=== PATIENT | female | born 1945 | race African-American/Black ===

== ENCOUNTER 2020-02-19 14:39 | Inpatient (IN) | payer MEDICARE, MEDICAID ==
[~2020-02-19] VITALS: Ht 154.9 cm; Wt 45.4 kg
--- NOTE | 2020-02-19 15:21 | Emergency Room Report ---
History of Present Illness General Chief Complaint: Abdominal Pain Source: Patient Present Illness HPI Disclaimer: Please note that this report is being documented using DRAGON technology. This can lead to erroneous entry secondary to incorrect interpretation by the dictating instrument. HPI: 74-year-old female history of right inguinal hernia presents for evaluation of abdominal pain. Reports intermittent pain for the past month over the past few days however pain is become constant and severe. 10 out of 10 , nonradiating, no exacerbating relieving factors. She cannot reduce the hernia any longer. Reports decreased stool and flatulence. Continues to make adequate urine. Takes aspirin but no other blood thinners. Denies fever or chills. Reports nausea but no vomiting. 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 EOMI. Cardiovascular: RRR. S1 and S2 normal. No murmur appreciated Resp: Normal work of breathing. No cough, wheezing or crackles appreciated Abdomen: Abdomen is soft, nondistended. There is a tender palpable firm mass in the right inguinal region. Severely tender to palpation. No overlying skin changes. Skin: Intact. No abrasions, laceration or rash over the exposed skin MSK: Normal tone and bulk. Moving all extremities. No obvious deformity. Neuro: Awake and alert. Mentating appropriately. Medical Decision Making Diagnostic Impression: Primary Impression: Ileus Additional Impressions: Enteritis Inguinal hernia ER Course 74-year-old female presenting for evaluation of abdominal pain. Concern for incarcerated or strangulated hernia though bowel obstruction, volvulus, appendicitis, diverticulitis, ovarian pathology also in the differential. Given the patient's nonreducible right tender mass concern greatest for hernia. Will obtain surgical consult, IV access, broad labs, CT scan. IV fluids running, patient receiving pain medication. 1730: CT scan consistent with generalized ileus, no obvious transition point identified. There is the right inguinal hernia but does not appear incarcerated or strangulated according to radiologist interpretation. Lactate and other labs are within normal limits. The patient's pain is improved. She is receiving IV fluids. No vomiting. Will require admission. She will be admitted to her PMD, per side. Dr. Leon consulted. Laboratory Tests Test 02/19/20 15:30 White Blood Count 8.4 K/UL (4.8-10.8) Red Blood Count 3.67 M/UL (4.20-5.40) L Hemoglobin 11.6 G/DL (12.0-16.0) L Hematocrit 36.7 % (37.0-47.0) L Mean Corpuscular Volume 100 FL (80-99) H Mean Corpuscular Hemoglobin 31.5 PG (27.0-31.0) H Mean Corpuscular Hemoglobin Concent 31.5 G/DL (32.0-36.0) L Red Cell Distribution Width 15.1 % (11.6-14.8) H Platelet Count 640 K/UL (150-450) H Mean Platelet Volume 6.4 FL (6.5-10.1) L Neutrophils (%) (Auto) 62.1 % (45.0-75.0) Lymphocytes (%) (Auto) 28.6 % (20.0-45.0) Monocytes (%) (Auto) 4.9 % (1.0-10.0) Eosinophils (%) (Auto) 3.4 % (0.0-3.0) H Basophils (%) (Auto) 0.9 % (0.0-2.0) Prothrombin Time 10.8 SEC (9.30-11.50) Prothrombin Time INR 1.0 (0.9-1.1) Activated Partial Thromboplast Time 28 SEC (23-33) Sodium Level 128 MMOL/L (136-145) L Potassium Level 3.6 MMOL/L (3.5-5.1) Chloride Level 98 MMOL/L (98-107) Carbon Dioxide Level 22 MMOL/L (21-32) Anion Gap 8 mmol/L (5-15) Blood Urea Nitrogen 25 mg/dL (7-18) H Creatinine 1.0 MG/DL (0.55-1.30) Estimated Glomerular Filtration Rate 54.5 mL/min (>60) Glucose Level 92 MG/DL (74-106) Lactic Acid Level 0.90 mmol/L (0.4-2.0) Calcium Level 8.5 MG/DL (8.5-10.1) Total Bilirubin 0.5 MG/DL (0.2-1.0) Aspartate Amino Transferase (AST) 16 U/L (15-37) Alanine Aminotransferase (ALT) 13 U/L (12-78) Alkaline Phosphatase 45 U/L (46-116) L Total Protein 7.2 G/DL (6.4-8.2) Albumin 3.8 G/DL (3.4-5.0) Globulin 3.4 g/dL Albumin/Globulin Ratio 1.1 (1.0-2.7) Lipase 125 U/L (73-393) Microbiology Date/Time Source Procedure Growth Status 02/19/20 15:25 Nasopharynx SARS-CoV-2 RdRp Gene Assay - Final Complete EKG Diagnostic Results EKG Time: 17:51 Rate: normal Rhythm: NSR ST Segments: no acute changes Other Impression Sinus rhythm with sinus arrhythmia. Normal axis, normal intervals, no ST segment changes. Rhythm Strip Diag. Results Rhythm Strip Time: 17:51 EP Interpretation: yes Rate: 60s Rhythm: NSR, no PVC's, other - Sinus arrhythmia CT/MRI/US Diagnostic Results CT/MRI/US Diagnostic Results : Impression INDICATION: Reason For Exam: ABD PAIN. COMPARISON: None TECHNIQUE: Axial images were obtained through the abdomen pelvis with intravenous contrast. Sagittal and coronal reformats are generated. All CT scans at this facility are performed using dose modulation techniques as appropriate to a performed exam including the following: automated exposure control with adjustment of the mA and/or kV according to patient size. RADIATION DOSE: CTDIvol: 3 mGy DLP: 132.4 mGy-cm Dose information generated by the CT scanner is available in PACS. FINDINGS: Mild emphysematous changes noted in the lung bases. The liver and spleen are homogeneous. Gallbladder is without sludge or stone and there is no wall thickening. The pancreas is unremarkable. Adrenals are normal in morphology. The kidneys are normal in size, shape and axis. There are numerous dilated fluid-filled small bowel loops throughout the abdomen and pelvis. No transition point noted. There is a loop in the anterior lower pelvis which appears slightly thickened. Question focal enteritis. Right colon is also fluid-filled. Stool lucencies noted in the left colon. There is sigmoid diverticulosis without sign of acute diverticulitis. The appendix is not visualized. There is no free fluid or free air. No pathologic adenopathy demonstrated. Urinary bladder appears unremarkable. Uterus is midline with calcified fibroid. There is a right inguinal hernia containing a loop of small bowel without definite incarceration. IMPRESSION: FLUID DISTENTION OF MULTIPLE SMALL AND LARGE BOWEL LOOPS THROUGHOUT THE ABDOMEN AND PELVIS WITHOUT CLEAR TRANSITION POINT. THE APPEARANCE SUGGESTIVE OF GENERALIZED ADYNAMIC ILEUS RATHER THAN FOCAL OBSTRUCTION. ONE OF THE SMALL BOWEL LOOP IN THE ANTERIOR LOWER PELVIS APPEARS THICKENED. QUESTION FOCAL ENTERITIS. RIGHT INGUINAL HERNIA CONTAINING A SMALL BOWEL LOOP WHICH IS ALSO FLUID-FILLED BUT DOES NOT APPEAR INCARCERATED OR OBSTRUCTED. DIVERTICULOSIS. CALCIFIED FIBROID. Dictated By: Kaushik Lassiter MD Electronically Signed By: Kaushik Lassiter MD Signed Date/Time 02/19/20 4624 CC: Hira Sorenson MD Last Vital Signs Date Time Temp Pulse Resp B/P (MAP) Pulse Ox O2 Delivery O2 Flow Rate FiO2 02/19/20 14:50 90 20 Room Air 02/19/20 14:44 99.1 153/87 (109) 99 Disposition: ADMITTED INPATIENT Condition: Serious Hira Sorenson MD Feb 19, 2020 15:21
[2020-02-19] MEDS ORDERED: Morphine Sulfate 4mg/ml Inj (IV USE ONLY) IVP ONE (15:30)
[2020-02-19] MEDS ORDERED: Omnipaque-300 100ml vial INJ PRN (15:30)
[2020-02-19 15:41] VITALS: BP 153/87
[2020-02-19 15:54] LABS: BASOPHILS % (AUTO) 0.9 % (0.0-2.0); EOSINOPHILS % (AUTO) 3.4 % (0.0-3.0); HEMATOCRIT 36.7 % (37.0-47.0); HEMOGLOBIN 11.6 G/DL (12.0-16.0); LYMPHOCYTES % (AUTO) 28.6 % (20.0-45.0); MEAN CORPUSCULAR VOLUME 100 FL (80-99); MONOCYTES % (AUTO) 4.9 % (1.0-10.0); NEUTROPHILS % (AUTO) 62.1 % (45.0-75.0); PLATELET COUNT 640 K/UL (150-450); RED BLOOD COUNT 3.67 M/UL (4.20-5.40); RED CELL DISTRIBUTION WIDTH 15.1 % (11.6-14.8); WHITE BLOOD COUNT 8.4 K/UL (4.8-10.8)
[2020-02-19 16:11] LABS: ANION GAP 8 mmol/L (5-15); BLOOD UREA NITROGEN 25 mg/dL (7-18); CALCIUM 8.5 MG/DL (8.5-10.1); CARBON DIOXIDE 22 MMOL/L (21-32); CHLORIDE 98 MMOL/L (98-107); POTASSIUM 3.6 MMOL/L (3.5-5.1); SODIUM 128 MMOL/L (136-145)
[2020-02-19 16:13] LABS: ALANINE AMINOTRANSFERASE 13 U/L (12-78); ALBUMIN 3.8 G/DL (3.4-5.0); ALBUMIN/GLOBULIN RATIO 1.1 (1.0-2.7); ALKALINE PHOSPHATASE 45 U/L (46-116); ASPARTATE AMINO TRANSFERASE 16 U/L (15-37); BILIRUBIN,TOTAL 0.5 MG/DL (0.2-1.0)
--- NOTE | 2020-02-19 16:59 | Diagnostic Imaging Report ---
EXAM: CT CT Abdomen Pelvis w/Contrast INDICATION: Reason For Exam: ABD PAIN. COMPARISON: None TECHNIQUE: Axial images were obtained through the abdomen pelvis with intravenous contrast. Sagittal and coronal reformats are generated. All CT scans at this facility are performed using dose modulation techniques as appropriate to a performed exam including the following: automated exposure control with adjustment of the mA and/or kV according to patient size. RADIATION DOSE: CTDIvol: 3 mGy DLP: 132.4 mGy-cm Dose information generated by the CT scanner is available in PACS. FINDINGS: Mild emphysematous changes noted in the lung bases. The liver and spleen are homogeneous. Gallbladder is without sludge or stone and there is no wall thickening. The pancreas is unremarkable. Adrenals are normal in morphology. The kidneys are normal in size, shape and axis. There are numerous dilated fluid-filled small bowel loops throughout the abdomen and pelvis. No transition point noted. There is a loop in the anterior lower pelvis which appears slightly thickened. Question focal enteritis. Right colon is also fluid-filled. Stool lucencies noted in the left colon. There is sigmoid diverticulosis without sign of acute diverticulitis. The appendix is not visualized. There is no free fluid or free air. No pathologic adenopathy demonstrated. Urinary bladder appears unremarkable. Uterus is midline with calcified fibroid. There is a right inguinal hernia containing a loop of small bowel without definite incarceration. IMPRESSION: FLUID DISTENTION OF MULTIPLE SMALL AND LARGE BOWEL LOOPS THROUGHOUT THE ABDOMEN AND PELVIS WITHOUT CLEAR TRANSITION POINT. THE APPEARANCE SUGGESTIVE OF GENERALIZED ADYNAMIC ILEUS RATHER THAN FOCAL OBSTRUCTION. ONE OF THE SMALL BOWEL LOOP IN THE ANTERIOR LOWER PELVIS APPEARS THICKENED. QUESTION FOCAL ENTERITIS. RIGHT INGUINAL HERNIA CONTAINING A SMALL BOWEL LOOP WHICH IS ALSO FLUID-FILLED BUT DOES NOT APPEAR INCARCERATED OR OBSTRUCTED. DIVERTICULOSIS. CALCIFIED FIBROID.
[2020-02-19 19:30] VITALS: BP 118/61
[2020-02-19 20:25] VITALS: BP 156/90
[2020-02-19 20:30] LABS: APPEARANCE,URINE CLEAR; BILIRUBIN, URINE NEGATIVE (NEGATIVE); COLOR,URINE PALE YELLOW; GLUCOSE, URINE (UA) NEGATIVE (NEGATIVE); KETONES,URINE 1+ (NEGATIVE); LEUKOCYTE ESTERASE ,URINE NEGATIVE (NEGATIVE); NITRITE,URINE NEGATIVE (NEGATIVE); PH,URINE 7 (4.5-8.0); PROTEIN,URINE NEGATIVE (NEGATIVE); UROBILINOGEN,URINE NORMAL MG/DL (0.0-1.0)
[2020-02-19] MEDS ORDERED: LISINOPRIL-HCT1 EACH ORAL (21:25)
[2020-02-19] MEDS ORDERED: CARVEDILOL12.5 MG ORAL (21:28)
[2020-02-19] MEDS ORDERED: LIPITOR80 MG ORAL (21:28)
[2020-02-19] MEDS ORDERED: HYDREA500 MG PO (21:28)
--- NOTE | 2020-02-19 22:21 | Consultation ---
History of Present Illness General Date patient seen: Feb 19, 2020 Reason for Hospitalization: Abdominal Pain Present Illness HPI Duplicate ERROPR Allergies: Coded Allergies: No Known Allergies (Unverified , 02/19/20) COVID-19 Screening Contact w/high risk pt: No Recent Travel to affected area: No Experienced COVID-19 symptoms?: No Medication History Scheduled Atorvastatin (Lipitor), 80 MG ORAL DAILY, (Reported) Carvedilol* (Carvedilol*), 12.5 MG ORAL EVERY 12 HOURS, (Reported) Lisinopril/Hydrochlorothiazide 10-12.5 Mg Tab (Lisinopril-Hctz 10-12.5 Mg Tab), 1 TAB ORAL DAILY, (Reported) Miscellaneous Medications Hydroxyurea* (HYDREA 500mg*), 500 MG PO, (Reported) Patient History Healthcare decision maker Resuscitation status Advanced Directive on File Review of Systems Review of Symptoms General ROS: no weight loss or fever Psychological ROS: no depression or mood changes, no memory loss Ophthalmic ROS: no visual changes or eye irritation ENT ROS: no nasal congestion, hearing loss, dizziness Allergy and Immunology ROS: no allergic symptoms or urticaria Hematological and Lymphatic ROS: no swollen glands, unusual bleeding or bruising Endocrine ROS: no polyuria, polydipsia, weight changes, temperature intolerance Respiratory ROS: no cough, shortness of breath, or wheezing Cardiovascular ROS: no chest pain or dyspnea on exertion Gastrointestinal ROS: denies abdominal pain, bright red blood in stool. Musculoskeletal ROS: no myalgias or arthralgias Neurological ROS: no TIA or stroke symptoms Dermatological ROS: no new or changing skin lesions, rashes or pruritis Physical Exam Physical Exam General appearance: alert, cooperative, no distress, appears stated age Head: Normocephalic, without obvious abnormality, atraumatic Eyes: conjunctivae/corneas clear. PERRL, EOM's intact. Fundi benign Throat: Lips, mucosa, and tongue normal. Teeth and gums normal Neck: supple, symmetrical, trachea midline, no adenopathy, thyroid: not enlarged, symmetric, no tenderness/mass/nodules, no carotid bruit and no JVD Lungs: clear to auscultation bilaterally Heart: regular rate and rhythm, S1, S2 normal, no murmur, click, rub or gallop Abdomen: soft, non-tender. Bowel sounds normal. No masses, no organomegaly Extremities: extremities normal, atraumatic, no cyanosis or edema Pulses: 2+ and symmetric Skin: Skin color, texture, turgor normal. No rashes or lesions Neurologic: Grossly normal Last 24 Hour Vital Signs Date Time Temp Pulse Resp B/P (MAP) Pulse Ox O2 Delivery O2 Flow Rate FiO2 02/19/20 20:20 99.1 86 16 118/61 99 Room Air 02/19/20 20:00 99.1 02/19/20 19:30 99.1 86 16 118/61 99 Room Air 02/19/20 15:41 99.1 20 153/87 99 Room Air 02/19/20 14:50 90 20 Room Air 02/19/20 14:44 99.1 90 20 153/87 (109) 99 Room Air Laboratory Tests Test 02/19/20 15:30 02/19/20 20:04 White Blood Count 8.4 K/UL (4.8-10.8) Red Blood Count 3.67 M/UL (4.20-5.40) L Hemoglobin 11.6 G/DL (12.0-16.0) L Hematocrit 36.7 % (37.0-47.0) L Mean Corpuscular Volume 100 FL (80-99) H Mean Corpuscular Hemoglobin 31.5 PG (27.0-31.0) H Mean Corpuscular Hemoglobin Concent 31.5 G/DL (32.0-36.0) L Red Cell Distribution Width 15.1 % (11.6-14.8) H Platelet Count 640 K/UL (150-450) H Mean Platelet Volume 6.4 FL (6.5-10.1) L Neutrophils (%) (Auto) 62.1 % (45.0-75.0) Lymphocytes (%) (Auto) 28.6 % (20.0-45.0) Monocytes (%) (Auto) 4.9 % (1.0-10.0) Eosinophils (%) (Auto) 3.4 % (0.0-3.0) H Basophils (%) (Auto) 0.9 % (0.0-2.0) Prothrombin Time 10.8 SEC (9.30-11.50) Prothromb Time International Ratio 1.0 (0.9-1.1) Activated Partial Thromboplast Time 28 SEC (23-33) Sodium Level 128 MMOL/L (136-145) L Potassium Level 3.6 MMOL/L (3.5-5.1) Chloride Level 98 MMOL/L (98-107) Carbon Dioxide Level 22 MMOL/L (21-32) Anion Gap 8 mmol/L (5-15) Blood Urea Nitrogen 25 mg/dL (7-18) H Creatinine 1.0 MG/DL (0.55-1.30) Estimat Glomerular Filtration Rate 54.5 mL/min (>60) Glucose Level 92 MG/DL (74-106) Lactic Acid Level 0.90 mmol/L (0.4-2.0) Calcium Level 8.5 MG/DL (8.5-10.1) Total Bilirubin 0.5 MG/DL (0.2-1.0) Aspartate Amino Transf (AST/SGOT) 16 U/L (15-37) Alanine Aminotransferase (ALT/SGPT) 13 U/L (12-78) Alkaline Phosphatase 45 U/L (46-116) L Total Protein 7.2 G/DL (6.4-8.2) Albumin 3.8 G/DL (3.4-5.0) Globulin 3.4 g/dL Albumin/Globulin Ratio 1.1 (1.0-2.7) Lipase 125 U/L (73-393) Urine Color Pale yellow Urine Appearance Clear Urine pH 7 (4.5-8.0) Urine Specific [place] 1.005 (1.005-1.035) Urine Protein Negative (NEGATIVE) Urine Glucose (UA) Negative (NEGATIVE) Urine Ketones 1+ (NEGATIVE) H Urine Blood Negative (NEGATIVE) Urine Nitrite Negative (NEGATIVE) Urine Bilirubin Negative (NEGATIVE) Urine Urobilinogen Normal MG/DL (0.0-1.0) Urine Leukocyte Esterase Negative (NEGATIVE) Microbiology Date/Time Source Procedure Growth Status 02/19/20 15:25 Nasopharynx SARS-CoV-2 RdRp Gene Assay - Final Complete Height (Feet): 5 Height (Inches): 1.00 Weight (Pounds): 105 Medications Current Medications Medications (Trade) Dose Ordered Sig/Danuta Route PRN Reason Start Time Stop Time Status Last Admin Dose Admin Iohexol (OMNIPAQUE-300 100ml) 100 ml NOW PRN INJ Radiology Procedure 02/19/20 15:30 02/21/20 15:18 Assessment/Plan Problem List: (1) Inguinal hernia ICD Codes: K40.90 - Unilateral inguinal hernia, without obstruction or gangrene , not specified as recurrent SNOMED: 859770107 (2) Enteritis ICD Codes: K52.9 - Noninfective gastroenteritis and colitis, unspecified SNOMED: 65699286 (3) Ileus ICD Codes: K56.7 - Ileus, unspecified SNOMED: 269379292 Bin Leon Feb 19, 2020 22:21
--- NOTE | 2020-02-19 22:49 | Consultation ---
History of Present Illness General Reason for Hospitalization: Abdominal Pain Present Illness HPI This is a 74-year-old female with known history of right inguinal hernia who presents for evaluation of abdominal pain. Reports intermittent pain for the past month over the past few days however pain is become constant and severe. 10 out of 10, nonradiating, no exacerbating relieving factors. She cannot reduce the hernia any longer. Reports decreased stool and flatulence. Continues to make adequate urine. Takes aspirin but no other blood thinners. Denies fever or chills. Reports nausea but no vomiting. Surgery called to evaluate and assist with care. Patient seen, patient evaluated, chart reviewed. States she had flatus and bowel movement this afternoon but still feels bowel discomfort. Does not know why this right groin bulge is no longer reducible. CT reviewed personally. Allergies: Coded Allergies: No Known Allergies (Unverified , 02/19/20) COVID-19 Screening Contact w/high risk pt: No Recent Travel to affected area: No Experienced COVID-19 symptoms?: No Medication History Scheduled Atorvastatin (Lipitor), 80 MG ORAL DAILY, (Reported) Carvedilol* (Carvedilol*), 12.5 MG ORAL EVERY 12 HOURS, (Reported) Lisinopril/Hydrochlorothiazide 10-12.5 Mg Tab (Lisinopril-Hctz 10-12.5 Mg Tab), 1 TAB ORAL DAILY, (Reported) Miscellaneous Medications Hydroxyurea* (HYDREA 500mg*), 500 MG PO, (Reported) Patient History History Provided By: Patient Healthcare decision maker Resuscitation status Advanced Directive on File Past Medical/Surgical History Past Medical/Surgical History: (1) Inguinal hernia (2) Enteritis (3) Ileus Review of Systems Review of Symptoms General ROS: no weight loss or fever Psychological ROS: no depression or mood changes, no memory loss Ophthalmic ROS: no visual changes or eye irritation ENT ROS: no nasal congestion, hearing loss, dizziness Allergy and Immunology ROS: no allergic symptoms or urticaria Hematological and Lymphatic ROS: no swollen glands, unusual bleeding or bruising Endocrine ROS: no polyuria, polydipsia, weight changes, temperature intolerance Respiratory ROS: no cough, shortness of breath, or wheezing Cardiovascular ROS: no chest pain or dyspnea on exertion Gastrointestinal ROS: ++ abdominal pain, bright red blood in stool. Musculoskeletal ROS: no myalgias or arthralgias Neurological ROS: no TIA or stroke symptoms Dermatological ROS: no new or changing skin lesions, rashes or pruritis Physical Exam Physical Exam General appearance: alert, cooperative, no distress, appears stated age Head: Normocephalic, without obvious abnormality, atraumatic Eyes: conjunctivae/corneas clear. PERRL, EOM's intact. Fundi benign Throat: Lips, mucosa, and tongue normal. Teeth and gums normal Neck: supple, symmetrical, trachea midline, no adenopathy, thyroid: not enlarged, symmetric, no tenderness/mass/nodules, no carotid bruit and no JVD Lungs: clear to auscultation bilaterally Heart: regular rate and rhythm, S1, S2 normal, no murmur, click, rub or gallop Abdomen: soft, discomfort on palpation generalized. Bowel sounds decreased. No masses, no organomegaly right inguinal hernia identified tender seemingly reducible Extremities: extremities normal, atraumatic, no cyanosis or edema Pulses: 2+ and symmetric Skin: Skin color, texture, turgor normal. No rashes or lesions Neurologic: Grossly normal Last 24 Hour Vital Signs Date Time Temp Pulse Resp B/P (MAP) Pulse Ox O2 Delivery O2 Flow Rate FiO2 02/19/20 20:20 99.1 86 16 118/61 99 Room Air 02/19/20 20:00 99.1 02/19/20 19:30 99.1 86 16 118/61 99 Room Air 02/19/20 15:41 99.1 20 153/87 99 Room Air 02/19/20 14:50 90 20 Room Air 02/19/20 14:44 99.1 90 20 153/87 (109) 99 Room Air Laboratory Tests Test 02/19/20 15:30 02/19/20 20:04 White Blood Count 8.4 K/UL (4.8-10.8) Red Blood Count 3.67 M/UL (4.20-5.40) L Hemoglobin 11.6 G/DL (12.0-16.0) L Hematocrit 36.7 % (37.0-47.0) L Mean Corpuscular Volume 100 FL (80-99) H Mean Corpuscular Hemoglobin 31.5 PG (27.0-31.0) H Mean Corpuscular Hemoglobin Concent 31.5 G/DL (32.0-36.0) L Red Cell Distribution Width 15.1 % (11.6-14.8) H Platelet Count 640 K/UL (150-450) H Mean Platelet Volume 6.4 FL (6.5-10.1) L Neutrophils (%) (Auto) 62.1 % (45.0-75.0) Lymphocytes (%) (Auto) 28.6 % (20.0-45.0) Monocytes (%) (Auto) 4.9 % (1.0-10.0) Eosinophils (%) (Auto) 3.4 % (0.0-3.0) H Basophils (%) (Auto) 0.9 % (0.0-2.0) Prothrombin Time 10.8 SEC (9.30-11.50) Prothromb Time International Ratio 1.0 (0.9-1.1) Activated Partial Thromboplast Time 28 SEC (23-33) Sodium Level 128 MMOL/L (136-145) L Potassium Level 3.6 MMOL/L (3.5-5.1) Chloride Level 98 MMOL/L (98-107) Carbon Dioxide Level 22 MMOL/L (21-32) Anion Gap 8 mmol/L (5-15) Blood Urea Nitrogen 25 mg/dL (7-18) H Creatinine 1.0 MG/DL (0.55-1.30) Estimat Glomerular Filtration Rate 54.5 mL/min (>60) Glucose Level 92 MG/DL (74-106) Lactic Acid Level 0.90 mmol/L (0.4-2.0) Calcium Level 8.5 MG/DL (8.5-10.1) Total Bilirubin 0.5 MG/DL (0.2-1.0) Aspartate Amino Transf (AST/SGOT) 16 U/L (15-37) Alanine Aminotransferase (ALT/SGPT) 13 U/L (12-78) Alkaline Phosphatase 45 U/L (46-116) L Total Protein 7.2 G/DL (6.4-8.2) Albumin 3.8 G/DL (3.4-5.0) Globulin 3.4 g/dL Albumin/Globulin Ratio 1.1 (1.0-2.7) Lipase 125 U/L (73-393) Urine Color Pale yellow Urine Appearance Clear Urine pH 7 (4.5-8.0) Urine Specific [place] 1.005 (1.005-1.035) Urine Protein Negative (NEGATIVE) Urine Glucose (UA) Negative (NEGATIVE) Urine Ketones 1+ (NEGATIVE) H Urine Blood Negative (NEGATIVE) Urine Nitrite Negative (NEGATIVE) Urine Bilirubin Negative (NEGATIVE) Urine Urobilinogen Normal MG/DL (0.0-1.0) Urine Leukocyte Esterase Negative (NEGATIVE) Microbiology Date/Time Source Procedure Growth Status 02/19/20 15:25 Nasopharynx SARS-CoV-2 RdRp Gene Assay - Final Complete Height (Feet): 5 Height (Inches): 1.00 Weight (Pounds): 105 Medications Current Medications Medications (Trade) Dose Ordered Sig/Danuta Route PRN Reason Start Time Stop Time Status Last Admin Dose Admin Iohexol (OMNIPAQUE-300 100ml) 100 ml NOW PRN INJ Radiology Procedure 02/19/20 15:30 02/21/20 15:18 Assessment/Plan Problem List: (1) Inguinal hernia Assessment & Plan: Patient with a right inguinal hernia. States bulges out now and she is never pushed back and like she used to. Has known about this for some time now. CT reviewed ileus with bowel and a right groin hernia. CT done on consistently demonstrate strangulation or incarceration but on examination it is tender and only support reducible. She did have a bowel movement today and is passing flatus this afternoon. Potentially reduced right inguinal hernia with resulting ileus from acute events. We will order small bowel series GI Gastrografin for evaluation of any potential obstructive process. N.p.o. IV fluids Labs ordered We will follow with recommendations thank you for me participation's care ICD Codes: K40.90 - Unilateral inguinal hernia, without obstruction or gangrene , not specified as recurrent SNOMED: 300116284 (2) Enteritis ICD Codes: K52.9 - Noninfective gastroenteritis and colitis, unspecified SNOMED: 83903006 (3) Ileus Assessment & Plan: The liver and spleen are homogeneous. Gallbladder is without sludge or stone and there is no wall thickening. The pancreas is unremarkable. Adrenals are normal in morphology. The kidneys are normal in size, shape and axis. There are numerous dilated fluid-filled small bowel loops throughout the abdomen and pelvis. No transition point noted. There is a loop in the anterior lower pelvis which appears slightly thickened. Question focal enteritis. Right colon is also fluid-filled. Stool lucencies noted in the left colon. There is sigmoid diverticulosis without sign of acute diverticulitis. The appendix is not visualized. There is no free fluid or free air. No pathologic adenopathy demonstrated. Urinary bladder appears unremarkable. Uterus is midline with calcified fibroid. There is a right inguinal hernia containing a loop of small bowel without definite incarceration. IMPRESSION: FLUID DISTENTION OF MULTIPLE SMALL AND LARGE BOWEL LOOPS THROUGHOUT THE ABDOMEN AND PELVIS WITHOUT CLEAR TRANSITION POINT. THE APPEARANCE SUGGESTIVE OF GENERALIZED ADYNAMIC ILEUS RATHER THAN FOCAL OBSTRUCTION. ONE OF THE SMALL BOWEL LOOP IN THE ANTERIOR LOWER PELVIS APPEARS THICKENED. QUESTION FOCAL ENTERITIS. RIGHT INGUINAL HERNIA CONTAINING A SMALL BOWEL LOOP WHICH IS ALSO FLUID-FILLED BUT DOES NOT APPEAR INCARCERATED OR OBSTRUCTED. ICD Codes: K56.7 - Ileus, unspecified SNOMED: 868633965 Bin Leon Feb 19, 2020 22:49
[2020-02-19] MEDS: Morphine Sulfate 2mg/ml Inj(IV/IM USE ONLY) IVP PRN (23:23)
[2020-02-20] VITALS: BP 134/74
--- NOTE | 2020-02-20 00:45 | History and Physical Report ---
DATE OF ADMISSION: 02/19/2020 HISTORY OF PRESENT ILLNESS: This is a 74-year-old who female came to the office where she has lot of abdominal pain for the last few days . No nausea or vomiting. Patient claims she had a bowel movement. Patient is going to be admitted on a medical floor. Patient had a CT scan showing possible ileus. Patient also has right-sided inguinal hernia, palpable. Patient denies any fever or chills. PAST MEDICAL HISTORY: Significant for hypertension, hyperlipidemia, anxiety. MEDICATIONS: See the list. ALLERGIES: NKA. FAMILY HISTORY: Noncontributory. SOCIAL HISTORY: Lives at home with the son. Denies any smoking and drinking. Denies any illegal drugs. REVIEW OF SYSTEMS: Generalized weakness, abdominal pain, nausea, vomiting, weight loss. PHYSICAL EXAMINATION: VITAL SIGNS: Blood pressure is 130/70, pulse 84, respirations 18. No fever. HEENT: NAD. CHEST: Bilaterally clear. CARDIOVASCULAR: Regular rhythm. No gallop. No murmur. ABDOMEN: Soft. Positive bowel sounds. Nontender. EXTREMITIES: No edema. GENITOURINARY: Deferred. LABORATORY DATA: White counts are normal 8000, hemoglobin is . ASSESSMENT: 1. Abdominal pain. 2. Possible ileus. 3. Right inguinal hernia. 4. Hypertension. 5. Weight loss. PLAN: We will admit on medical floor. Start IV fluids. NPO. Zofran. Pain medication. Consider General Surgery as well as consider GI consult. Florentin Pritchett M.D. DR: AGNES JOB#: [id number] CC:
[2020-02-20 04:00] VITALS: BP 123/78
[2020-02-20 05:51] LABS: BASOPHILS % (AUTO) 0.6 % (0.0-2.0); HEMATOCRIT 35.5 % (37.0-47.0); HEMOGLOBIN 10.7 G/DL (12.0-16.0); LYMPHOCYTES % (AUTO) 21.8 % (20.0-45.0); MEAN CORPUSCULAR VOLUME 105 FL (80-99); MONOCYTES % (AUTO) 7.7 % (1.0-10.0); NEUTROPHILS % (AUTO) 66.9 % (45.0-75.0); PLATELET COUNT 510 K/UL (150-450); RED BLOOD COUNT 3.38 M/UL (4.20-5.40); RED CELL DISTRIBUTION WIDTH 14.4 % (11.6-14.8); WHITE BLOOD COUNT 6.5 K/UL (4.8-10.8)
[2020-02-20 06:31] LABS: ALANINE AMINOTRANSFERASE 10 U/L (12-78); ALBUMIN 3.3 G/DL (3.4-5.0); ALBUMIN/GLOBULIN RATIO 1.1 (1.0-2.7); ALKALINE PHOSPHATASE 39 U/L (46-116); AMYLASE 95 U/L (25-115); ANION GAP 10 mmol/L (5-15); ASPARTATE AMINO TRANSFERASE 13 U/L (15-37); BILIRUBIN,TOTAL 0.5 MG/DL (0.2-1.0); BLOOD UREA NITROGEN 18 mg/dL (7-18); CALCIUM 8.1 MG/DL (8.5-10.1); CARBON DIOXIDE 25 MMOL/L (21-32); CHLORIDE 105 MMOL/L (98-107); CREATININE 1.1 MG/DL (0.55-1.30); SODIUM 140 MMOL/L (136-145)
[2020-02-20 08:00] VITALS: BP 140/84
[2020-02-20] MEDS: Pantoprazole Inj IVP SCH (08:42)
[2020-02-20] MEDS: Morphine Sulfate 2mg/ml Inj(IV/IM USE ONLY) IVP PRN (08:43)
--- NOTE | 2020-02-20 14:52 | Diagnostic Imaging Report ---
XRAY Small Bowel with Gastrografin CLINICAL HISTORY: Reason For Exam: ABD PAIN. COMPARISON: None FINDINGS: A small bowel series with Gastrografin obtained. Technical Support Analyst radiograph of the abdomen demonstrates nonobstructed bowel gas pattern. After administration of Gastrografin, serial KUBs are obtained. There is steady antegrade passage of contrast through the small bowel. The bowel loops are nondistended and mucosal pattern is within normal limits.There is no mural nodularity or separation of loops. Contrast reached the colon by 3 hours. No gross abnormality of the colon demonstrated. There is no mass or mass effect identified. IMPRESSION: ESSENTIALLY NORMAL SMALL BOWEL SERIES.
[2020-02-20 16:00] VITALS: BP 154/93
[2020-02-20] MEDS ORDERED: 1/2 NS 1000ml IV ONE (16:25)
--- NOTE | 2020-02-20 18:21 | Surgery Progress Note ---
Surgery Progress Note Subjective Symptoms: improved, voiding well, passing flatus, BM, pain decreased Objective Last 24 Hour Vital Signs Date Time Temp Pulse Resp B/P (MAP) Pulse Ox O2 Delivery O2 Flow Rate FiO2 02/20/20 16:00 98.3 82 18 154/93 (113) 98 02/20/20 09:13 98.0 02/20/20 09:00 Room Air 02/20/20 08:00 98.1 70 18 140/84 (102) 98 02/20/20 04:00 98.0 70 18 123/78 (93) 98 02/20/20 00:00 97.9 75 18 134/74 (94) 96 02/19/20 21:24 Room Air 02/19/20 20:25 98.1 77 18 156/90 (112) 97 02/19/20 20:20 99.1 86 16 118/61 99 Room Air 02/19/20 20:00 99.1 02/19/20 19:30 99.1 86 16 118/61 99 Room Air I&O Intake and Output 02/19/20 02/20/20 19:00 07:00 Intake Total 1300 ml Output Total 700 ml Balance 600 ml Intake IV Total 1300 ml Output Urine Total 700 ml # Voids 5 Cardiovascular: RSR Respiratory: clear Abdomen: soft, non-tender, present bowel sounds, non-distended Extremities: no edema, no tenderness, no cyanosis Laboratory Tests Test 02/19/20 20:04 02/20/20 04:45 Urine Color Pale yellow Urine Appearance Clear Urine pH 7 (4.5-8.0) Urine Specific [place] 1.005 (1.005-1.035) Urine Protein Negative (NEGATIVE) Urine Glucose (UA) Negative (NEGATIVE) Urine Ketones 1+ (NEGATIVE) H Urine Blood Negative (NEGATIVE) Urine Nitrite Negative (NEGATIVE) Urine Bilirubin Negative (NEGATIVE) Urine Urobilinogen Normal MG/DL (0.0-1.0) Urine Leukocyte Esterase Negative (NEGATIVE) White Blood Count 6.5 K/UL (4.8-10.8) Red Blood Count 3.38 M/UL (4.20-5.40) L Hemoglobin 10.7 G/DL (12.0-16.0) L Hematocrit 35.5 % (37.0-47.0) L Mean Corpuscular Volume 105 FL (80-99) H Mean Corpuscular Hemoglobin 31.6 PG (27.0-31.0) H Mean Corpuscular Hemoglobin Concent 30.1 G/DL (32.0-36.0) L Red Cell Distribution Width 14.4 % (11.6-14.8) Platelet Count 510 K/UL (150-450) H Mean Platelet Volume 6.5 FL (6.5-10.1) Neutrophils (%) (Auto) 66.9 % (45.0-75.0) Lymphocytes (%) (Auto) 21.8 % (20.0-45.0) Monocytes (%) (Auto) 7.7 % (1.0-10.0) Eosinophils (%) (Auto) 3.0 % (0.0-3.0) Basophils (%) (Auto) 0.6 % (0.0-2.0) Erythrocyte Sedimentation Rate 19 MM/HR (0-30) Prothrombin Time 11.3 SEC (9.30-11.50) Prothromb Time International Ratio 1.0 (0.9-1.1) Activated Partial Thromboplast Time 30 SEC (23-33) Sodium Level 140 MMOL/L (136-145) # Potassium Level 4.0 MMOL/L (3.5-5.1) Chloride Level 105 MMOL/L (98-107) Carbon Dioxide Level 25 MMOL/L (21-32) Anion Gap 10 mmol/L (5-15) Blood Urea Nitrogen 18 mg/dL (7-18) Creatinine 1.1 MG/DL (0.55-1.30) Estimat Glomerular Filtration Rate 59.1 mL/min (>60) Glucose Level 72 MG/DL (74-106) L Calcium Level 8.1 MG/DL (8.5-10.1) L Total Bilirubin 0.5 MG/DL (0.2-1.0) Aspartate Amino Transf (AST/SGOT) 13 U/L (15-37) L Alanine Aminotransferase (ALT/SGPT) 10 U/L (12-78) L Alkaline Phosphatase 39 U/L (46-116) L C-Reactive Protein, Quantitative < 0.4 mg/dL (0.00-0.90) Total Protein 6.4 G/DL (6.4-8.2) Albumin 3.3 G/DL (3.4-5.0) L Globulin 3.1 g/dL Albumin/Globulin Ratio 1.1 (1.0-2.7) Amylase Level 95 U/L (25-115) Plan Problems: (1) Inguinal hernia Assessment & Plan: Patient with a right inguinal hernia. States bulges out now and she is never pushed back and like she used to. Has known about this for some time now. CT reviewed ileus with bowel and a right groin hernia. CT done on consistently demonstrate strangulation or incarceration but on examination it is tender and only support reducible. She did have a bowel movement today and is passing flatus this afternoon. Potentially reduced right inguinal hernia with resulting ileus from acute events. We will order small bowel series GI Gastrografin for evaluation of any potential obstructive process. N.p.o. IV fluids Labs ordered We will follow with recommendations thank you for me participation's care SB series noted no obstruction normal hernia reduced start diet outpt follow up (2) Enteritis (3) Ileus Assessment & Plan: The liver and spleen are homogeneous. Gallbladder is without sludge or stone and there is no wall thickening. The pancreas is unremarkable. Adrenals are normal in morphology. The kidneys are normal in size, shape and axis. There are numerous dilated fluid-filled small bowel loops throughout the abdomen and pelvis. No transition point noted. There is a loop in the anterior lower pelvis which appears slightly thickened. Question focal enteritis. Right colon is also fluid-filled. Stool lucencies noted in the left colon. There is sigmoid diverticulosis without sign of acute diverticulitis. The appendix is not visualized. There is no free fluid or free air. No pathologic adenopathy demonstrated. Urinary bladder appears unremarkable. Uterus is midline with calcified fibroid. There is a right inguinal hernia containing a loop of small bowel without definite incarceration. IMPRESSION: FLUID DISTENTION OF MULTIPLE SMALL AND LARGE BOWEL LOOPS THROUGHOUT THE ABDOMEN AND PELVIS WITHOUT CLEAR TRANSITION POINT. THE APPEARANCE SUGGESTIVE OF GENERALIZED ADYNAMIC ILEUS RATHER THAN FOCAL OBSTRUCTION. ONE OF THE SMALL BOWEL LOOP IN THE ANTERIOR LOWER PELVIS APPEARS THICKENED. QUESTION FOCAL ENTERITIS. RIGHT INGUINAL HERNIA CONTAINING A SMALL BOWEL LOOP WHICH IS ALSO FLUID-FILLED BUT DOES NOT APPEAR INCARCERATED OR OBSTRUCTED. A small bowel series with Gastrografin obtained. Principal Investigator radiograph of the abdomen demonstrates nonobstructed bowel gas pattern. After administration of Gastrografin, serial KUBs are obtained. There is steady antegrade passage of contrast through the small bowel. The bowel loops are nondistended and mucosal pattern is within normal limits.There is no mural nodularity or separation of loops. Contrast reached the colon by 3 hours. No gross abnormality of the colon demonstrated. There is no mass or mass effect identified. IMPRESSION: ESSENTIALLY NORMAL SMALL BOWEL SERIES. Bin Leon Feb 20, 2020 18:21
[2020-02-20 20:00] VITALS: BP 149/76
[2020-02-21] VITALS: BP 132/76
[2020-02-21 04:00] VITALS: BP 136/75
[2020-02-21 06:18] LABS: BASOPHILS % (AUTO) 0.9 % (0.0-2.0); EOSINOPHILS % (AUTO) 3.2 % (0.0-3.0); HEMATOCRIT 35.8 % (37.0-47.0); HEMOGLOBIN 10.9 G/DL (12.0-16.0); LYMPHOCYTES % (AUTO) 14.3 % (20.0-45.0); MEAN CORPUSCULAR VOLUME 105 FL (80-99); NEUTROPHILS % (AUTO) 73.6 % (45.0-75.0); PLATELET COUNT 544 K/UL (150-450); RED CELL DISTRIBUTION WIDTH 14.8 % (11.6-14.8); WHITE BLOOD COUNT 6.2 K/UL (4.8-10.8)
[2020-02-21 07:08] LABS: ANION GAP 12 mmol/L (5-15); BLOOD UREA NITROGEN 12 mg/dL (7-18); CALCIUM 8.6 MG/DL (8.5-10.1); CARBON DIOXIDE 23 MMOL/L (21-32); CHLORIDE 105 MMOL/L (98-107); CREATININE 0.9 MG/DL (0.55-1.30); SODIUM 140 MMOL/L (136-145)
[2020-02-21 08:00] VITALS: BP 157/97
[2020-02-21] MEDS: Pantoprazole Inj IVP SCH (08:16)
[2020-02-21] MEDS: hydroCHLOROthiazide 12.5mg TAB ORAL SCH ×2 (10:30→10:41)
[2020-02-21] MEDS: Carvedilol 12.5mg tab ORAL SCH ×2 (10:41→20:40)
[2020-02-21 12:00] VITALS: BP 153/87
--- NOTE | 2020-02-21 12:29 | General Progress Note ---
Assessment/Plan Problem List: (1) Ileus ICD Codes: K56.7 - Ileus, unspecified SNOMED: 871878663 (2) Inguinal hernia ICD Codes: K40.90 - Unilateral inguinal hernia, without obstruction or gangrene , not specified as recurrent SNOMED: 075935291 (3) Enteritis ICD Codes: K52.9 - Noninfective gastroenteritis and colitis, unspecified SNOMED: 84677355 (4) HTN (hypertension) ICD Codes: I10 - Essential (primary) hypertension SNOMED: 85084188 (5) Diverticulosis ICD Codes: K57.90 - Diverticulosis of intestine, part unspecified, without perforation or abscess without bleeding SNOMED: 883709648 (6) Anemia ICD Codes: D64.9 - Anemia, unspecified SNOMED: 719524175 Assessment/Plan: npo ivf pain control fu SBFT fu surg recs anemia work up Subjective Allergies: Coded Allergies: No Known Allergies (Unverified , 02/19/20) Objective Last 24 Hour Vital Signs Date Time Temp Pulse Resp B/P (MAP) Pulse Ox O2 Delivery O2 Flow Rate FiO2 02/21/20 10:41 72 157/97 02/21/20 09:00 Room Air 02/21/20 08:00 98.3 72 19 157/97 (117) 97 02/21/20 04:00 98.0 75 18 136/75 (95) 97 02/21/20 00:00 98.0 70 18 132/76 (94) 98 02/20/20 21:00 Room Air 02/20/20 20:00 98.5 71 18 149/76 (100) 97 02/20/20 16:00 98.3 82 18 154/93 (113) 98 Intake and Output 02/20/20 02/21/20 19:00 07:00 Intake Total 100 ml 1200 ml Balance 100 ml 1200 ml Intake Oral 100 ml IV Total 100 ml 1100 ml # Voids 2 Laboratory Tests 02/21/20 05:10: White Blood Count 6.2, Red Blood Count 3.40L, Hemoglobin 10.9L, Hematocrit 35.8L , Mean Corpuscular Volume 105H, Mean Corpuscular Hemoglobin 32.0H, Mean Corpuscular Hemoglobin Concent 30.5L, Red Cell Distribution Width 14.8, Platelet Count 544H, Mean Platelet Volume 6.5, Neutrophils (%) (Auto) 73.6, Lymphocytes (%) (Auto) 14.3L, Monocytes (%) (Auto) 8.0, Eosinophils (%) (Auto) 3.2H, Basophils (%) (Auto) 0.9, Sodium Level 140, Potassium Level 4.0, Chloride Level 105, Carbon Dioxide Level 23, Anion Gap 12, Blood Urea Nitrogen 12, Creatinine 0.9, Estimat Glomerular Filtration Rate > 60, Glucose Level 54L, Calcium Level 8.6 Height (Feet): 5 Height (Inches): 1.00 Weight (Pounds): 100 General Appearance: alert EENT: normal ENT inspection Neck: supple Cardiovascular: normal rate Respiratory/Chest: decreased breath sounds Abdomen: soft, hypoactive bowel sounds, tender Extremities: non-tender Jose Maria España MD Feb 21, 2020 12:29
--- NOTE | 2020-02-21 15:01 | Surgery Progress Note ---
Surgery Progress Note Subjective Symptoms: improved, pain absent, tolerating diet, voiding well, passing flatus Objective Last 24 Hour Vital Signs Date Time Temp Pulse Resp B/P (MAP) Pulse Ox O2 Delivery O2 Flow Rate FiO2 02/21/20 12:00 98.4 81 19 153/87 (109) 98 02/21/20 10:41 72 157/97 02/21/20 09:00 Room Air 02/21/20 08:00 98.3 72 19 157/97 (117) 97 02/21/20 04:00 98.0 75 18 136/75 (95) 97 02/21/20 00:00 98.0 70 18 132/76 (94) 98 02/20/20 21:00 Room Air 02/20/20 20:00 98.5 71 18 149/76 (100) 97 02/20/20 16:00 98.3 82 18 154/93 (113) 98 I&O Intake and Output 02/20/20 02/21/20 19:00 07:00 Intake Total 100 ml 1200 ml Balance 100 ml 1200 ml Intake Oral 100 ml IV Total 100 ml 1100 ml # Voids 2 Cardiovascular: RSR Respiratory: clear Abdomen: soft, non-tender, present bowel sounds Extremities: no edema, no tenderness, no cyanosis Laboratory Tests Test 02/21/20 05:10 White Blood Count 6.2 K/UL (4.8-10.8) Red Blood Count 3.40 M/UL (4.20-5.40) L Hemoglobin 10.9 G/DL (12.0-16.0) L Hematocrit 35.8 % (37.0-47.0) L Mean Corpuscular Volume 105 FL (80-99) H Mean Corpuscular Hemoglobin 32.0 PG (27.0-31.0) H Mean Corpuscular Hemoglobin Concent 30.5 G/DL (32.0-36.0) L Red Cell Distribution Width 14.8 % (11.6-14.8) Platelet Count 544 K/UL (150-450) H Mean Platelet Volume 6.5 FL (6.5-10.1) Neutrophils (%) (Auto) 73.6 % (45.0-75.0) Lymphocytes (%) (Auto) 14.3 % (20.0-45.0) L Monocytes (%) (Auto) 8.0 % (1.0-10.0) Eosinophils (%) (Auto) 3.2 % (0.0-3.0) H Basophils (%) (Auto) 0.9 % (0.0-2.0) Sodium Level 140 MMOL/L (136-145) Potassium Level 4.0 MMOL/L (3.5-5.1) Chloride Level 105 MMOL/L (98-107) Carbon Dioxide Level 23 MMOL/L (21-32) Anion Gap 12 mmol/L (5-15) Blood Urea Nitrogen 12 mg/dL (7-18) Creatinine 0.9 MG/DL (0.55-1.30) Estimat Glomerular Filtration Rate > 60 mL/min (>60) Glucose Level 54 MG/DL (74-106) L Calcium Level 8.6 MG/DL (8.5-10.1) Plan Problems: (1) Inguinal hernia Assessment & Plan: Patient with a right inguinal hernia. States bulges out now and she is never pushed back and like she used to. Has known about this for some time now. CT reviewed ileus with bowel and a right groin hernia. CT done on consistently demonstrate strangulation or incarceration but on examination it is tender and only support reducible. She did have a bowel movement today and is passing flatus this afternoon. Potentially reduced right inguinal hernia with resulting ileus from acute events. We will order small bowel series GI Gastrografin for evaluation of any potential obstructive process. N.p.o. IV fluids Labs ordered We will follow with recommendations thank you for me participation's care SB series noted no obstruction normal hernia reduced diet as tolerated outpt follow up office info given (2) Enteritis (3) Ileus Assessment & Plan: The liver and spleen are homogeneous. Gallbladder is without sludge or stone and there is no wall thickening. The pancreas is unremarkable. Adrenals are normal in morphology. The kidneys are normal in size, shape and axis. There are numerous dilated fluid-filled small bowel loops throughout the abdomen and pelvis. No transition point noted. There is a loop in the anterior lower pelvis which appears slightly thickened. Question focal enteritis. Right colon is also fluid-filled. Stool lucencies noted in the left colon. There is sigmoid diverticulosis without sign of acute diverticulitis. The appendix is not visualized. There is no free fluid or free air. No pathologic adenopathy demonstrated. Urinary bladder appears unremarkable. Uterus is midline with calcified fibroid. There is a right inguinal hernia containing a loop of small bowel without definite incarceration. IMPRESSION: FLUID DISTENTION OF MULTIPLE SMALL AND LARGE BOWEL LOOPS THROUGHOUT THE ABDOMEN AND PELVIS WITHOUT CLEAR TRANSITION POINT. THE APPEARANCE SUGGESTIVE OF GENERALIZED ADYNAMIC ILEUS RATHER THAN FOCAL OBSTRUCTION. ONE OF THE SMALL BOWEL LOOP IN THE ANTERIOR LOWER PELVIS APPEARS THICKENED. QUESTION FOCAL ENTERITIS. RIGHT INGUINAL HERNIA CONTAINING A SMALL BOWEL LOOP WHICH IS ALSO FLUID-FILLED BUT DOES NOT APPEAR INCARCERATED OR OBSTRUCTED. A small bowel series with Gastrografin obtained. Brake Liner radiograph of the abdomen demonstrates nonobstructed bowel gas pattern. After administration of Gastrografin, serial KUBs are obtained. There is steady antegrade passage of contrast through the small bowel. The bowel loops are nondistended and mucosal pattern is within normal limits.There is no mural nodularity or separation of loops. Contrast reached the colon by 3 hours. No gross abnormality of the colon demonstrated. There is no mass or mass effect identified. IMPRESSION: ESSENTIALLY NORMAL SMALL BOWEL SERIES. Bin Leon Feb 21, 2020 15:01
[2020-02-21 16:00] VITALS: BP 164/86
[2020-02-21 20:00] VITALS: BP 136/90
[2020-02-21] MEDS: Atorvastatin 80mg tab ORAL SCH ×2 (20:40→20:52)
--- NOTE | 2020-02-21 20:45 | Progress Note ---
DATE: 02/21/2020 SUBJECTIVE: This is a 74-year-old female came with abdominal pain, nausea, and vomiting. The patient was found to have ileus and hernia. The patient had a surgery and GI consult. The patient is physically doing fine. PHYSICAL EXAMINATION: VITAL SIGNS: Blood pressure 153/87. We will advanced the diet. Pulse 81, no fever. CHEST: Bilaterally clear. CARDIOVASCULAR: Regular rhythm. ABDOMEN: Soft. EXTREMITIES: CCE. NEUROLOGICAL: No focal deficit. LABORATORY DATA: White count 6.2. ASSESSMENT: 1. Ileus. 2. Right inguinal hernia. 3. Hypertension. PLAN: We added medication, Norvasc 10 mg daily. Monitor blood pressure. Advance diet. DC IV fluid. PT and OT. Florentin Pritchett M.D. DR: Ana JOB#: [id number] CC:
[2020-02-22] VITALS: BP 147/86
[2020-02-22 04:00] VITALS: BP 133/81
[2020-02-22 06:38] LABS: EOSINOPHILS % (AUTO) 4.4 % (0.0-3.0); HEMATOCRIT 38.7 % (37.0-47.0); HEMOGLOBIN 11.8 G/DL (12.0-16.0); LYMPHOCYTES % (AUTO) 19.5 % (20.0-45.0); MEAN CORPUSCULAR VOLUME 104 FL (80-99); NEUTROPHILS % (AUTO) 68.2 % (45.0-75.0); PLATELET COUNT 542 K/UL (150-450); RED BLOOD COUNT 3.71 M/UL (4.20-5.40); RED CELL DISTRIBUTION WIDTH 14.5 % (11.6-14.8); WHITE BLOOD COUNT 5.6 K/UL (4.8-10.8)
[2020-02-22 07:03] LABS: ANION GAP 10 mmol/L (5-15); BLOOD UREA NITROGEN 12 mg/dL (7-18); CALCIUM 8.8 MG/DL (8.5-10.1); CARBON DIOXIDE 25 MMOL/L (21-32); CHLORIDE 105 MMOL/L (98-107); POTASSIUM 3.9 MMOL/L (3.5-5.1); SODIUM 140 MMOL/L (136-145)
[2020-02-22 07:28] LABS: % IRON SATURATION 39 % (15-50); IRON 81 ug/dL (50-175); TOTAL IRON BINDING CAPACITY 208 ug/dL (250-450)
[2020-02-22 08:00] VITALS: BP 157/91
[2020-02-22 09:00] VITALS: BP 149/55
[2020-02-22] MEDS: hydroCHLOROthiazide 12.5mg TAB ORAL SCH (09:00)
[2020-02-22] MEDS ORDERED: Lisinopril 10mg tab ORAL SCH (09:00)
[2020-02-22] MEDS: Pantoprazole Inj IVP SCH (09:34)
[2020-02-22] MEDS: Carvedilol 12.5mg tab ORAL SCH (09:34)
[2020-02-22 12:00] VITALS: BP 148/88
--- NOTE | 2020-02-22 12:41 | General Progress Note ---
Assessment/Plan Problem List: (1) Ileus ICD Codes: K56.7 - Ileus, unspecified SNOMED: 872853373 (2) Inguinal hernia ICD Codes: K40.90 - Unilateral inguinal hernia, without obstruction or gangrene , not specified as recurrent SNOMED: 893348258 (3) Enteritis ICD Codes: K52.9 - Noninfective gastroenteritis and colitis, unspecified SNOMED: 21180341 (4) HTN (hypertension) ICD Codes: I10 - Essential (primary) hypertension SNOMED: 39438117 (5) Diverticulosis ICD Codes: K57.90 - Diverticulosis of intestine, part unspecified, without perforation or abscess without bleeding SNOMED: 329563888 (6) Anemia ICD Codes: D64.9 - Anemia, unspecified SNOMED: 136890755 Assessment/Plan: on reg diet no plans for surg no BM>>> will add bowel regimen pending possible discharge Subjective ROS Limited/Unobtainable: Yes Allergies: Coded Allergies: No Known Allergies (Unverified , 02/19/20) Objective Last 24 Hour Vital Signs Date Time Temp Pulse Resp B/P (MAP) Pulse Ox O2 Delivery O2 Flow Rate FiO2 02/22/20 12:00 98.2 71 18 148/88 (108) 100 02/22/20 09:34 157/91 02/22/20 09:34 78 157/91 02/22/20 09:00 Room Air 02/22/20 08:00 98.3 78 20 157/91 (113) 98 02/22/20 04:00 98.1 69 18 133/81 (98) 97 02/22/20 00:00 98.4 79 19 147/86 (106) 97 02/21/20 21:00 Room Air 02/21/20 20:40 78 136/90 02/21/20 20:00 99.0 78 19 136/90 (105) 96 02/21/20 16:00 98.6 80 19 164/86 (112) 98 Intake and Output 02/21/20 02/22/20 19:00 07:00 Intake Total 960 ml 500 ml Balance 960 ml 500 ml Intake Oral 960 ml 500 ml # Voids 4 Laboratory Tests 02/22/20 05:00: White Blood Count 5.6, Red Blood Count 3.71L, Hemoglobin 11.8L, Hematocrit 38.7 , Mean Corpuscular Volume 104H, Mean Corpuscular Hemoglobin 31.7H, Mean Corpuscular Hemoglobin Concent 30.4L, Red Cell Distribution Width 14.5, Platelet Count 542H, Mean Platelet Volume 6.6, Neutrophils (%) (Auto) 68.2, Lymphocytes (%) (Auto) 19.5L, Monocytes (%) (Auto) 7.0, Eosinophils (%) (Auto) 4.4H, Basophils (%) (Auto) 1.0, Sodium Level 140, Potassium Level 3.9, Chloride Level 105, Carbon Dioxide Level 25, Anion Gap 10, Blood Urea Nitrogen 12, Creatinine 1.0, Estimat Glomerular Filtration Rate > 60, Glucose Level 67L, Calcium Level 8.8, Iron Level 81, Total Iron Binding Capacity 208L, Percent Iron Saturation 39, Unsaturated Iron Binding 127, Folate 15.7 Height (Feet): 5 Height (Inches): 1.00 Weight (Pounds): 100 General Appearance: no apparent distress EENT: normal ENT inspection Neck: supple Cardiovascular: normal rate Respiratory/Chest: decreased breath sounds Abdomen: normal bowel sounds, non tender, soft Extremities: non-tender Jose Maria España MD Feb 22, 2020 12:41
[2020-02-22] MEDS ORDERED: Lactulose 20gm/30ml UDC ORAL SCH (12:54)
--- NOTE | 2020-02-22 14:45 | Surgery Progress Note ---
Surgery Progress Note Subjective Symptoms: improved, pain absent, tolerating diet, voiding well, passing flatus , BM Objective Last 24 Hour Vital Signs Date Time Temp Pulse Resp B/P (MAP) Pulse Ox O2 Delivery O2 Flow Rate FiO2 02/22/20 12:00 98.2 71 18 148/88 (108) 100 02/22/20 09:34 157/91 02/22/20 09:34 78 157/91 02/22/20 09:00 Room Air 02/22/20 08:00 98.3 78 20 157/91 (113) 98 02/22/20 04:00 98.1 69 18 133/81 (98) 97 02/22/20 00:00 98.4 79 19 147/86 (106) 97 02/21/20 21:00 Room Air 02/21/20 20:40 78 136/90 02/21/20 20:00 99.0 78 19 136/90 (105) 96 02/21/20 16:00 98.6 80 19 164/86 (112) 98 I&O Intake and Output 02/21/20 02/22/20 19:00 07:00 Intake Total 960 ml 500 ml Balance 960 ml 500 ml Intake Oral 960 ml 500 ml # Voids 4 Cardiovascular: RSR Respiratory: clear Abdomen: soft, non-tender, present bowel sounds, non-distended Extremities: no edema, no tenderness, no cyanosis Laboratory Tests Test 02/22/20 05:00 White Blood Count 5.6 K/UL (4.8-10.8) Red Blood Count 3.71 M/UL (4.20-5.40) L Hemoglobin 11.8 G/DL (12.0-16.0) L Hematocrit 38.7 % (37.0-47.0) Mean Corpuscular Volume 104 FL (80-99) H Mean Corpuscular Hemoglobin 31.7 PG (27.0-31.0) H Mean Corpuscular Hemoglobin Concent 30.4 G/DL (32.0-36.0) L Red Cell Distribution Width 14.5 % (11.6-14.8) Platelet Count 542 K/UL (150-450) H Mean Platelet Volume 6.6 FL (6.5-10.1) Neutrophils (%) (Auto) 68.2 % (45.0-75.0) Lymphocytes (%) (Auto) 19.5 % (20.0-45.0) L Monocytes (%) (Auto) 7.0 % (1.0-10.0) Eosinophils (%) (Auto) 4.4 % (0.0-3.0) H Basophils (%) (Auto) 1.0 % (0.0-2.0) Sodium Level 140 MMOL/L (136-145) Potassium Level 3.9 MMOL/L (3.5-5.1) Chloride Level 105 MMOL/L (98-107) Carbon Dioxide Level 25 MMOL/L (21-32) Anion Gap 10 mmol/L (5-15) Blood Urea Nitrogen 12 mg/dL (7-18) Creatinine 1.0 MG/DL (0.55-1.30) Estimat Glomerular Filtration Rate > 60 mL/min (>60) Glucose Level 67 MG/DL (74-106) L Calcium Level 8.8 MG/DL (8.5-10.1) Iron Level 81 ug/dL (50-175) Total Iron Binding Capacity 208 ug/dL (250-450) L Percent Iron Saturation 39 % (15-50) Unsaturated Iron Binding 127 ug/dL (112-346) Folate 15.7 NG/ML (8.6-58.9) Plan Problems: (1) Inguinal hernia Assessment & Plan: Patient with a right inguinal hernia. States bulges out now and she is never pushed back and like she used to. Has known about this for some time now. CT reviewed ileus with bowel and a right groin hernia. CT done on consistently demonstrate strangulation or incarceration but on examination it is tender and only support reducible. She did have a bowel movement today and is passing flatus this afternoon. Potentially reduced right inguinal hernia with resulting ileus from acute events. We will order small bowel series GI Gastrografin for evaluation of any potential obstructive process. N.p.o. IV fluids Labs ordered We will follow with recommendations thank you for me participation's care SB series noted no obstruction normal hernia reduced diet as tolerated outpt follow up office info given (2) Enteritis (3) Ileus Assessment & Plan: The liver and spleen are homogeneous. Gallbladder is without sludge or stone and there is no wall thickening. The pancreas is unremarkable. Adrenals are normal in morphology. The kidneys are normal in size, shape and axis. There are numerous dilated fluid-filled small bowel loops throughout the abdomen and pelvis. No transition point noted. There is a loop in the anterior lower pelvis which appears slightly thickened. Question focal enteritis. Right colon is also fluid-filled. Stool lucencies noted in the left colon. There is sigmoid diverticulosis without sign of acute diverticulitis. The appendix is not visualized. There is no free fluid or free air. No pathologic adenopathy demonstrated. Urinary bladder appears unremarkable. Uterus is midline with calcified fibroid. There is a right inguinal hernia containing a loop of small bowel without definite incarceration. IMPRESSION: FLUID DISTENTION OF MULTIPLE SMALL AND LARGE BOWEL LOOPS THROUGHOUT THE ABDOMEN AND PELVIS WITHOUT CLEAR TRANSITION POINT. THE APPEARANCE SUGGESTIVE OF GENERALIZED ADYNAMIC ILEUS RATHER THAN FOCAL OBSTRUCTION. ONE OF THE SMALL BOWEL LOOP IN THE ANTERIOR LOWER PELVIS APPEARS THICKENED. QUESTION FOCAL ENTERITIS. RIGHT INGUINAL HERNIA CONTAINING A SMALL BOWEL LOOP WHICH IS ALSO FLUID-FILLED BUT DOES NOT APPEAR INCARCERATED OR OBSTRUCTED. A small bowel series with Gastrografin obtained. Cycle Analyst radiograph of the abdomen demonstrates nonobstructed bowel gas pattern. After administration of Gastrografin, serial KUBs are obtained. There is steady antegrade passage of contrast through the small bowel. The bowel loops are nondistended and mucosal pattern is within normal limits.There is no mural nodularity or separation of loops. Contrast reached the colon by 3 hours. No gross abnormality of the colon demonstrated. There is no mass or mass effect identified. IMPRESSION: ESSENTIALLY NORMAL SMALL BOWEL SERIES. Bin Leon Feb 22, 2020 14:45
[2020-02-22 16:00] VITALS: BP 149/55
[2020-02-22] MEDS ORDERED: Docusate 100mg cap ORAL SCH (18:00)
[2020-02-22] MEDS ORDERED: Miralax 17gm pkt ORAL SCH (21:00)
--- NOTE | 2020-02-22 22:15 | Discharge Summary ---
DATE OF ADMISSION: 02/19/2020 DATE OF DISCHARGE: 02/22/2020 HOSPITAL COURSE: This is an elderly 74 years old female came with abdominal pain, nausea, vomiting, and poor p.o. intake. Also was noted has a right inguinal hernia. The patient had NPO. NG tube was placed, suction low to intermittent. Surgery and GI consult was obtained. The patient is clinically improved. She is tolerating liquid diet. She is going to go home. The patient was recommended outpatient surgery. DISCHARGE DIAGNOSES: 1. Ileus. 2. Inguinal hernia. 3. Hypertension. DIET: She is on soft diet. ACTIVITY: As tolerated. DISCHARGE MEDICATIONS: See the list from the home. Florentin Pritchett M.D. DR: JUAN MIGUEL JOB#: [id number] CC:
== END 2020-02-22 18:45 | disposition home or self-care (01) | DRG 394 ==
LOC: EMR 15:00 → EDBEDREQ 17:20 → 3E 18:15 → EDBEDREQ 18:22
DX: K40.31 Unilateral inguinal hernia, with obstruction, without gangrene, recurrent (principal); Z68.1 Body mass index [BMI] 19.9 or less, adult; K56.7 Ileus, unspecified; K52.9 Noninfective gastroenteritis and colitis, unspecified; R63.4 Abnormal weight loss; I10 Essential (primary) hypertension; E78.5 Hyperlipidemia, unspecified; K57.90 Diverticulosis of intestine, part unspecified, without perforation or abscess without bleeding
CPT/HCPCS: 36415; 74177; 74250; 80048; 80053; 81003; 82150; 82746; 83540; 83550; 83605; 83690; 85025; 85610; 85651; 85730; 86140; 86850; 86900; 86901; 87040; 96361; 96374; 96375; 99285; J2405; J7030; U0002

== ENCOUNTER 2020-03-03 11:53 | Inpatient (IN) | payer MEDICARE, MEDICAID ==
[~2020-03-03] VITALS: Ht 154.9 cm; Wt 40.8 kg
[~2020-03-03 11:53] MED LIST: CARVEDILOL12.5 MG ORAL; HYDREA500 MG PO; LIPITOR80 MG ORAL; LISINOPRIL-HCT1 EACH ORAL
[2020-03-03] MEDS ORDERED: Omnipaque-300 100ml vial INJ PRN (12:15)
[2020-03-03] MEDS ORDERED: Morphine Sulfate 4mg/ml Inj (IV USE ONLY) IVP ONE (12:15)
[2020-03-03 12:37] VITALS: BP 149/95
--- NOTE | 2020-03-03 12:41 | Diagnostic Imaging Report ---
EXAM: XR Chest, 1 View CLINICAL HISTORY: PAIN TECHNIQUE: Frontal view of the chest. COMPARISON: None FINDINGS: Hardware: None. Lungs/pleura: Hyperinflation of the lungs, suggestive of COPD. No focal consolidation. No pleural effusion or pneumothorax. Heart/mediastinum: Normal. No cardiomegaly. Soft tissues: Bilateral nipple shadows over the lower lungs. Bones: No acute fracture. Upper abdomen: Normal. IMPRESSION: Hyperinflation of the lungs, suggestive of COPD. No acute disease identified.
[2020-03-03 12:57] LABS: BASOPHILS % (AUTO) 1.4 % (0.0-2.0); EOSINOPHILS % (AUTO) 2.2 % (0.0-3.0); HEMATOCRIT 44.5 % (37.0-47.0); HEMOGLOBIN 13.5 G/DL (12.0-16.0); LYMPHOCYTES % (AUTO) 27.1 % (20.0-45.0); MEAN CORPUSCULAR VOLUME 105 FL (80-99); NEUTROPHILS % (AUTO) 63.3 % (45.0-75.0); PLATELET COUNT 709 K/UL (150-450); RED BLOOD COUNT 4.25 M/UL (4.20-5.40); RED CELL DISTRIBUTION WIDTH 15.2 % (11.6-14.8); WHITE BLOOD COUNT 10.4 K/UL (4.8-10.8)
[2020-03-03 13:04] LABS: ANION GAP 19 mmol/L (5-15); BLOOD UREA NITROGEN 16 mg/dL (7-18); CARBON DIOXIDE 23 MMOL/L (21-32); CHLORIDE 100 MMOL/L (98-107); CREATININE 1.3 MG/DL (0.55-1.30); POTASSIUM 4.4 MMOL/L (3.5-5.1); SODIUM 142 MMOL/L (136-145)
[2020-03-03 13:15] LABS: ALANINE AMINOTRANSFERASE 12 U/L (12-78); ALBUMIN 5.1 G/DL (3.4-5.0); ALBUMIN/GLOBULIN RATIO 1.3 (1.0-2.7); ALKALINE PHOSPHATASE 56 U/L (46-116); ASPARTATE AMINO TRANSFERASE 14 U/L (15-37); BILIRUBIN,TOTAL 1.2 MG/DL (0.2-1.0)
[2020-03-03 13:18] LABS: BILIRUBIN,DIRECT 0.2 MG/DL (0.0-0.3)
--- NOTE | 2020-03-03 14:08 | Cardiac Electrophysiology PN ---
Subjective Subjective [id number] Objective Last 24 Hour Vital Signs Date Time Temp Pulse Resp B/P (MAP) Pulse Ox O2 Delivery O2 Flow Rate FiO2 03/03/20 12:55 98.8 03/03/20 12:37 98.8 85 20 149/95 97 Room Air 03/03/20 12:30 90 20 Room Air 03/03/20 11:58 98.8 113 20 175/128 (144) 97 Room Air Laboratory Tests Test 03/03/20 12:20 White Blood Count 10.4 K/UL (4.8-10.8) Red Blood Count 4.25 M/UL (4.20-5.40) Hemoglobin 13.5 G/DL (12.0-16.0) Hematocrit 44.5 % (37.0-47.0) Mean Corpuscular Volume 105 FL (80-99) H Mean Corpuscular Hemoglobin 31.8 PG (27.0-31.0) H Mean Corpuscular Hemoglobin Concent 30.4 G/DL (32.0-36.0) L Red Cell Distribution Width 15.2 % (11.6-14.8) H Platelet Count 709 K/UL (150-450) H Mean Platelet Volume 7.1 FL (6.5-10.1) Neutrophils (%) (Auto) 63.3 % (45.0-75.0) Lymphocytes (%) (Auto) 27.1 % (20.0-45.0) Monocytes (%) (Auto) 6.0 % (1.0-10.0) Eosinophils (%) (Auto) 2.2 % (0.0-3.0) Basophils (%) (Auto) 1.4 % (0.0-2.0) Prothrombin Time 10.8 SEC (9.30-11.50) Prothromb Time International Ratio 1.0 (0.9-1.1) Activated Partial Thromboplast Time 27 SEC (23-33) Sodium Level 142 MMOL/L (136-145) Potassium Level 4.4 MMOL/L (3.5-5.1) Chloride Level 100 MMOL/L (98-107) Carbon Dioxide Level 23 MMOL/L (21-32) Anion Gap 19 mmol/L (5-15) H Blood Urea Nitrogen 16 mg/dL (7-18) Creatinine 1.3 MG/DL (0.55-1.30) Estimat Glomerular Filtration Rate 48.8 mL/min (>60) Glucose Level 138 MG/DL (74-106) H Calcium Level 10.0 MG/DL (8.5-10.1) Total Bilirubin 1.2 MG/DL (0.2-1.0) H Direct Bilirubin 0.2 MG/DL (0.0-0.3) Aspartate Amino Transf (AST/SGOT) 14 U/L (15-37) L Alanine Aminotransferase (ALT/SGPT) 12 U/L (12-78) Alkaline Phosphatase 56 U/L (46-116) Total Protein 9.1 G/DL (6.4-8.2) H Albumin 5.1 G/DL (3.4-5.0) H Globulin 4.0 g/dL Albumin/Globulin Ratio 1.3 (1.0-2.7) Lipase 79 U/L (73-393) Rogelio Wilkerson MD Mar 03, 2020 14:08
--- NOTE | 2020-03-03 14:29 | Diagnostic Imaging Report ---
EXAM: CT Abdomen and Pelvis With Intravenous Contrast CLINICAL HISTORY: ABD PAIN TECHNIQUE: Axial computed tomography images of the abdomen and pelvis with intravenous contrast. CTDI is 2.9 mGy and DLP is 118 mGy-cm. One or more of the following dose reduction techniques were used: automated exposure control, adjustment of the mA and/or kV according to patient size, use of iterative reconstruction technique. COMPARISON: CT abdomen/pelvis on 02/19/2020 FINDINGS: Lung bases: Similar changes and mild atelectasis in the visualized lower lungs. Heart: Small pericardial fluid partially visualized. ABDOMEN: Liver: Mild focal fat along the falciform ligament. Gallbladder and bile ducts: Unremarkable. No calcified stones. No ductal dilation. Pancreas: Unremarkable. No mass. No ductal dilation. Spleen: Unremarkable. No splenomegaly. Adrenals: Unremarkable. No mass. Kidneys and ureters: Nonspecific small hyperdense lesion off the left kidney. Further evaluation could be performed with ultrasound. No hydronephrosis or obstructing stone. Stomach and bowel: Prominence of the wall of the stomach may be secondary to under distention, but gastritis is not excluded. Mildly prominent fluid and gas-filled small bowel loops are nonspecific but may represent enteritis or ileus in the appropriate clinical setting. Findings are decreased in prominence compared to prior exam. Diverticulosis without evidence of diverticulitis. PELVIS: Appendix: Normal appendix. Bladder: Mild prominence of the bladder wall is nonspecific. Please correlate with urinalysis if concerned for cystitis. Reproductive: Calcified uterine fibroid. ABDOMEN and PELVIS: Intraperitoneal space: Small amount of ascites. No free air. Bones/joints: Mild degenerative changes of the spine. Chronic mild superior endplate depressions of the L1 and L2 vertebral bodies. Soft tissues: Stable right inguinal hernia containing nonobstructed small bowel. Vasculature: Atherosclerotic changes of the vasculature. No aortic aneurysm or dissection. Lymph nodes: Unremarkable. No enlarged lymph nodes. IMPRESSION: 1. Prominence of the wall of the stomach may be secondary to under distention, but gastritis is not excluded. 2. Mildly prominent fluid and gas-filled small bowel loops are nonspecific but may represent enteritis or ileus in the appropriate clinical setting. Findings are decreased in prominence compared to prior exam. 3. Mild prominence of the bladder wall is nonspecific. Please correlate with urinalysis if concerned for cystitis. 4. Small amount of ascites. 5. Stable right inguinal hernia containing nonobstructed small bowel.
[2020-03-03 14:36] VITALS: BP 143/85
--- NOTE | 2020-03-03 14:48 | Emergency Room Report ---
History of Present Illness General Chief Complaint: Abdominal Pain Source: Patient Present Illness HPI 74-year-old female presents ED with abdominal pain nausea and vomiting. Started 3 days ago. Pain is dull, 10 out of 10, nonradiating. Denies chest pain or shortness of breath. Was admitted here recently for vomiting and ileus and inguinal hernia. Was subsequently discharged and scheduled for outpatient surgery. States that since then she went to [facility] where she had to have her hernia reduced. Is currently awaiting outpatient surgery to fix her hernia. No other aggravating relieving factors. 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 Patient History Past Medical History: [place], CVA/TIA Past Surgical History: none, other - hernia Pertinent Family History: none Social History: Denies: smoking, alcohol use, drug use Now: No Immunizations: UTD Reviewed Nursing Documentation: PMH: Agreed; PSxH: Agreed Nursing Documentation-PMH Past Medical History: No History, Except For Hx Hypertension: Yes - heart attack 2019 Hx Gastrointestinal Problems: Yes - hernia Hx Cerebrovascular Accident: Yes Review of Systems All Other Systems: negative except mentioned in HPI Physical Exam Vital Signs Date Time Temp Pulse Resp B/P (MAP) Pulse Ox O2 Delivery O2 Flow Rate FiO2 03/03/20 11:58 98.8 113 20 175/128 (144) 97 Room Air Sp02 EP Interpretation: reviewed, normal General Appearance: no apparent distress, alert, GCS 15, non-toxic, thin Head: normocephalic, atraumatic Eyes: bilateral eye normal inspection, bilateral eye PERRL ENT: hearing grossly normal, normal pharynx, no angioedema, normal voice Neck: full range of motion, supple/symm/no masses Respiratory: chest non-tender, lungs clear, normal breath sounds, speaking full sentences Cardiovascular #1: regular rate, rhythm, no edema Cardiovascular #2: 2+ carotid (R), 2+ carotid (L), 2+ radial (R), 2+ radial (L) , 2+ dorsalis pedis (R), 2+ dorsalis pedis (L) Gastrointestinal: normal bowel sounds, non tender, soft, non-distended, no guarding, no rebound Rectal: deferred Genitourinary: normal inspection, no CVA tenderness Musculoskeletal: back normal, normal range of motion, gait/station normal, non- tender Neurologic: alert, motor strength/tone normal, oriented x3, sensory intact, responsive, speech normal Psychiatric: judgement/insight normal, memory normal, mood/affect normal, no suicidal/homicidal ideation Reflexes: 3+ bicep (R), 3+ bicep (L), 3+ tricep (R), 3+ tricep (L), 3+ knee (R) , 3+ knee (L) Skin: no rash Lymphatic: no adenopathy Medical Decision Making Diagnostic Impression: Primary Impression: Ileus Additional Impression: Inguinal hernia Qualified Codes: K40.91 - Unilateral inguinal hernia, without obstruction or gangrene, recurrent ER Course Hospital Course 74-year-old female presents with abdominal pain and vomiting. History of ileus. History of inguinal hernia Differential diagnoses include: BPH, cystitis, pyelonephritis, kidney stone Clinical course Patient placed on stretcher. manager zone. After initial history and physical I ordered labs, IV fluids, UA, pain medication and CT scan Labs - no leukocytosis, Hb/Hct stable. electrolytes ok EKG - sinus tachyadra no acute ischemic changes interpreted by me CXR - no acute process CT abdomen and pelvis -enteritis versus ileus. Right inguinal hernia containing nonobstructed small bowel I discussed with surgery. Patient has had multiple recurrent episodes of vomiting and pain due to this hernia. Patient is not safe for discharge at this time. Patient would benefit from medical clearance and surgical repair of hernia. Dr Leon consulted. Dr Zeng consulted Case discussed with Dr. Pritchett and he agreed to accept the patient to his service for further care and support I feel this is a highly complex case requiring extensive working including EKG/ Rhythm strip, Xray/CT/US, Blood/urine lab work, repeat exams while in ED, and administration of strong opiates/narcotics for pain control, admission to hospital or close patient follow up. Diagnosis - ileus, inguinal hernia Patient admitted to floor in serious condition Labs Test 03/03/20 12:20 White Blood Count 10.4 K/UL (4.8-10.8) Red Blood Count 4.25 M/UL (4.20-5.40) Hemoglobin 13.5 G/DL (12.0-16.0) Hematocrit 44.5 % (37.0-47.0) Mean Corpuscular Volume 105 FL (80-99) Mean Corpuscular Hemoglobin 31.8 PG (27.0-31.0) Mean Corpuscular Hemoglobin Concent 30.4 G/DL (32.0-36.0) Red Cell Distribution Width 15.2 % (11.6-14.8) Platelet Count 709 K/UL (150-450) Mean Platelet Volume 7.1 FL (6.5-10.1) Neutrophils (%) (Auto) 63.3 % (45.0-75.0) Lymphocytes (%) (Auto) 27.1 % (20.0-45.0) Monocytes (%) (Auto) 6.0 % (1.0-10.0) Eosinophils (%) (Auto) 2.2 % (0.0-3.0) Basophils (%) (Auto) 1.4 % (0.0-2.0) Prothrombin Time 10.8 SEC (9.30-11.50) Prothromb Time International Ratio 1.0 (0.9-1.1) Activated Partial Thromboplast Time 27 SEC (23-33) Sodium Level 142 MMOL/L (136-145) Potassium Level 4.4 MMOL/L (3.5-5.1) Chloride Level 100 MMOL/L (98-107) Carbon Dioxide Level 23 MMOL/L (21-32) Anion Gap 19 mmol/L (5-15) Blood Urea Nitrogen 16 mg/dL (7-18) Creatinine 1.3 MG/DL (0.55-1.30) Estimat Glomerular Filtration Rate 48.8 mL/min (>60) Glucose Level 138 MG/DL (74-106) Calcium Level 10.0 MG/DL (8.5-10.1) Total Bilirubin 1.2 MG/DL (0.2-1.0) Direct Bilirubin 0.2 MG/DL (0.0-0.3) Aspartate Amino Transf (AST/SGOT) 14 U/L (15-37) Alanine Aminotransferase (ALT/SGPT) 12 U/L (12-78) Alkaline Phosphatase 56 U/L (46-116) Total Protein 9.1 G/DL (6.4-8.2) Albumin 5.1 G/DL (3.4-5.0) Globulin 4.0 g/dL Albumin/Globulin Ratio 1.3 (1.0-2.7) Lipase 79 U/L (73-393) EKG Diagnostic Results Rate: tachycardiac Rhythm: NSR ST Segments: no acute changes ASA given to the pt in ED: No Rhythm Strip Diag. Results EP Interpretation: yes Rhythm: NSR, no PVC's, no ectopy Chest X-Ray Diagnostic Results Chest X-Ray Diagnostic Results : Chest X-Ray Ordered: Yes # of Views/Limited/Complete: 1 View Indication: Other EP Interpretation: Yes Interpretation: no consolidation, no effusion, no pneumothorax, no acute cardiopulmonary disease Impression: No acute disease Electronically Signed by: Electronically signed by Dionte Borrero MD CT/MRI/US Diagnostic Results CT/MRI/US Diagnostic Results : Imaging Test Ordered: CT A/P Impression Procedure: CT Abdomen Pelvis w/Contrast EXAM: CT Abdomen and Pelvis With Intravenous Contrast CLINICAL HISTORY: ABD PAIN TECHNIQUE: Axial computed tomography images of the abdomen and pelvis with intravenous contrast. CTDI is 2.9 mGy and DLP is 118 mGy-cm. One or more of the following dose reduction techniques were used: automated exposure control, adjustment of the mA and/or kV according to patient size, use of iterative reconstruction technique. COMPARISON: CT abdomen/pelvis on 02/19/2020 FINDINGS: Lung bases: Similar changes and mild atelectasis in the visualized lower lungs. Heart: Small pericardial fluid partially visualized. ABDOMEN: Liver: Mild focal fat along the falciform ligament. Gallbladder and bile ducts: Unremarkable. No calcified stones. No ductal dilation. Pancreas: Unremarkable. No mass. No ductal dilation. Spleen: Unremarkable. No splenomegaly. Adrenals: Unremarkable. No mass. Kidneys and ureters: Nonspecific small hyperdense lesion off the left kidney. Further evaluation could be performed with ultrasound. No hydronephrosis or obstructing stone. Stomach and bowel: Prominence of the wall of the stomach may be secondary to under distention, but gastritis is not excluded. Mildly prominent fluid and gas-filled small bowel loops are nonspecific but may represent enteritis or ileus in the appropriate clinical setting. Findings are decreased in prominence compared to prior exam. Diverticulosis without evidence of diverticulitis. PELVIS: Appendix: Normal appendix. Bladder: Mild prominence of the bladder wall is nonspecific. Please correlate with urinalysis if concerned for cystitis. Reproductive: Calcified uterine fibroid. ABDOMEN and PELVIS: Intraperitoneal space: Small amount of ascites. No free air. Bones/joints: Mild degenerative changes of the spine. Chronic mild superior endplate depressions of the L1 and L2 vertebral bodies. Soft tissues: Stable right inguinal hernia containing nonobstructed small bowel. Vasculature: Atherosclerotic changes of the vasculature. No aortic aneurysm or dissection. Lymph nodes: Unremarkable. No enlarged lymph nodes. IMPRESSION: 1. Prominence of the wall of the stomach may be secondary to under distention, but gastritis is not excluded. 2. Mildly prominent fluid and gas-filled small bowel loops are nonspecific but may represent enteritis or ileus in the appropriate clinical setting. Findings are decreased in prominence compared to prior exam. 3. Mild prominence of the bladder wall is nonspecific. Please correlate with urinalysis if concerned for cystitis. 4. Small amount of ascites. 5. Stable right inguinal hernia containing nonobstructed small bowel. Last Vital Signs Date Time Temp Pulse Resp B/P (MAP) Pulse Ox O2 Delivery O2 Flow Rate FiO2 03/03/20 14:36 98.8 85 20 143/85 97 Room Air Status: improved Disposition: ADMITTED INPATIENT Condition: Serious Referrals: Marino Pritchett MD (PCP) Dionte Borrero MD Mar 03, 2020 14:48
[2020-03-03 16:00] VITALS: BP 134/115
[2020-03-03] MEDS ORDERED: Milk of Magnesia 30ml Ud ORAL PRN (16:15)
[2020-03-03] MEDS: Docusate 100mg cap ORAL SCH (18:00)
[2020-03-03 20:00] VITALS: BP 135/87
[2020-03-03] MEDS ORDERED: Carvedilol 12.5mg tab ORAL SCH (21:00)
[2020-03-03] MEDS: Atorvastatin 80mg tab ORAL SCH ×2 (21:00→22:01)
[2020-03-03] MEDS ORDERED: HydrALAZINE 10mg Tab ORAL PRN (21:30)
[2020-03-03] MEDS ORDERED: Morphine Sulfate 2mg/ml Inj(IV/IM USE ONLY) IVP PRN (22:00)
--- NOTE | 2020-03-03 23:00 | Consultation ---
DATE OF CONSULTATION: 03/03/2020 CARDIOLOGY CONSULTATION CONSULTING PHYSICIAN: Rogelio Wilkerson MD. REFERRING PHYSICIAN: Marino Pritchett MD. Additional referring physician is Dr. Leon. REASON FOR CONSULTATION: Hypertension and preoperative clearance prior to surgery. HISTORY OF PRESENT ILLNESS: The patient is a 74-year-old lady with history of hypertension, hernia, who presented to the emergency room for abdominal pain and vomiting. The patient also has history of prior myocardial infarction in 2019 and has history of prior CVA. The patient presented to the emergency room with abdominal pain as well as 3 times vomiting. The patient was supposed to see Dr. Leon on Wednesday to be scheduled for surgery, however, she did not show up. REVIEW OF SYSTEMS: Review of systems was negative other than what was mentioned in history of present illness. PAST MEDICAL HISTORY: As mentioned above. FAMILY HISTORY: Noncontributory. SOCIAL HISTORY: She lives at home. Does not smoke or drink alcohol. PHYSICAL EXAMINATION: VITAL SIGNS: Show blood pressure was as high as 175/128, pulse of 113, respirations 20, temperature 98.8. HEAD AND NECK: Showed no JVD. LUNGS: Coarse rhonchi. CARDIOVASCULAR: Shows regular S1 and S2 with no gallop. ABDOMEN: Generally tender. EXTREMITIES: No pitting edema. LABORATORY AND DIAGNOSTIC DATA: White count 10.5, hemoglobin 13.5, hematocrit of 44.5, platelet count of 709. Sodium 142, potassium 4.4, BUN of 16, creatinine 1.3, and glucose of 138. Her chest x-ray showed hyperinflation of the lung status post COPD and no acute disease. ASSESSMENT AND PLAN: 1. Accelerated hypertension. Start the patient on Lopressor 25 mg b.i.d. and also add p.r.n. IV hydralazine. We will get an echocardiogram to evaluate for ejection fraction and wall motion abnormality and preparation for surgery and for clearance. 2. History of inguinal hernia. The patient has recurrence of vomiting. The CT scan is pending. Further evaluation by Dr. Leon. 3. History of enteritis and ileus. Thank you very much for allowing me to participate in the care of this patient. Please do not hesitate to contact me for any questions regarding my evaluation. Rogelio Wilkerson M.D. DR: CARLOS JOB#: [id number] CC:
[2020-03-04] VITALS: BP 128/71
[2020-03-04 04:00] VITALS: BP 138/80
[2020-03-04 08:00] VITALS: BP 133/80
--- NOTE | 2020-03-04 08:45 | History and Physical Report ---
NOTE: VERY POOR AUDIO HISTORY OF PRESENT ILLNESS: This is a female who has . The patient complains of pain. She has no fever or chills. She has no BM for the last two days. PAST MEDICAL HISTORY: Significant for hypertension and hyperlipidemia. MEDICATIONS: See the list. ALLERGIES: . FAMILY HISTORY: . SOCIAL HISTORY: . PHYSICAL EXAMINATION: This is an elderly female . LABORATORY DATA: White cells are normal. Chemistry panel is unremarkable. ASSESSMENT: 1. . 2. hernia. 3. Hypertension. 4. Hyperlipidemia. PLAN: The patient is on medical floor . Florentin Pritchett M.D. DR: JUAN MIGUEL JOB#: [id number] CC:
[2020-03-04] MEDS: hydroCHLOROthiazide 12.5mg TAB ORAL SCH ×2 (09:00→11:43)
[2020-03-04] MEDS: Docusate 100mg cap ORAL SCH ×2 (11:42→18:48)
[2020-03-04] MEDS: Hydroxyurea 500mg cap ORAL SCH (11:43)
[2020-03-04] MEDS: Lisinopril 10mg tab ORAL SCH (11:44)
[2020-03-04 12:00] VITALS: BP 145/86
--- NOTE | 2020-03-04 14:18 | Pre-Procedure Note/Attestation ---
Pre-Procedure Note/Attestation Complete Prior to Procedure Planned Procedure: right Procedure Narrative: Right inguinal hernia repair with mesh Indications for Procedure Pre-Operative Diagnosis: Incarcerated inguinal hernia Attestation I attest that I discussed the nature of the procedure; its benefits; risks and complications; and alternatives (and the risks and benefits of such alternatives ), prior to the procedure, with the patient (or the patient's legal medical representative). I attest that, if there was a reasonable possibility of needing a blood transfusion, the patient (or the patient's legal medical representative) was given the [facility] standardized written summary, pursuant to the [place] Blood Safety Act ([place] Health and Safety Code # 1645, as amended). I attest that I re-evaluated the patient just prior to the surgery and that there has been no change in the patient's H&P, except as documented below: Bin Leon Mar 04, 2020 14:18
--- NOTE | 2020-03-04 14:18 | Consultation ---
History of Present Illness General Date patient seen: Mar 04, 2020 Reason for Hospitalization: Abdominal Pain Present Illness HPI This is a 75-year-old female well-known to me. Recently she had incarcerated right femoral hernia which was reduced and she was discharged safely tolerating diet and comfortable. States when she went home a few hours later she developed acute pain again went to the emergency department at [facility] where the ambulance had taken her and hernia was reduced and she was discharged from the emergency department there. She spoke to me over the phone subsequently and we had her scheduled for cardiac clearance and elective surgery. Unfortunately she has developed acute abdominal pain nausea and vomiting and return to [facility] emergency department for evaluation. Given her pain and discomfort she was admitted further care and management. Currently the hernia was reduced but shot coat tender and still symptomatic. Potentially ileus as well. Surgery was called to evaluate and assist with care. Allergies: Coded Allergies: No Known Allergies (Unverified , 02/19/20) COVID-19 Screening Contact w/high risk pt: No Recent Travel to affected area: No Experienced COVID-19 symptoms?: No Medication History Scheduled Atorvastatin (Lipitor), 80 MG ORAL DAILY, (Reported) Carvedilol* (Carvedilol*), 12.5 MG ORAL EVERY 12 HOURS, (Reported) Lisinopril/Hydrochlorothiazide 10-12.5 Mg Tab (Lisinopril-Hctz 10-12.5 Mg Tab), 1 TAB ORAL DAILY, (Reported) Miscellaneous Medications Hydroxyurea* (HYDREA 500mg*), 500 MG PO, (Reported) Patient History History Provided By: Patient, Medical Record, PMD Healthcare decision maker Resuscitation status Advanced Directive on File Past Medical/Surgical History Past Medical/Surgical History: (1) Anemia (2) Diverticulosis (3) HTN (hypertension) (4) Inguinal hernia (5) Ileus (6) Hernia (7) Intractable vomiting Review of Systems Review of Symptoms General ROS: no weight loss or fever Psychological ROS: no depression or mood changes, no memory loss Ophthalmic ROS: no visual changes or eye irritation ENT ROS: no nasal congestion, hearing loss, dizziness Allergy and Immunology ROS: no allergic symptoms or urticaria Hematological and Lymphatic ROS: no swollen glands, unusual bleeding or bruising Endocrine ROS: no polyuria, polydipsia, weight changes, temperature intolerance Respiratory ROS: no cough, shortness of breath, or wheezing Cardiovascular ROS: no chest pain or dyspnea on exertion Gastrointestinal ROS: denies abdominal pain, bright red blood in stool. Musculoskeletal ROS: no myalgias or arthralgias Neurological ROS: no TIA or stroke symptoms Dermatological ROS: no new or changing skin lesions, rashes or pruritis Physical Exam Physical Exam General appearance: alert, cooperative, no distress, appears stated age Head: Normocephalic, without obvious abnormality, atraumatic Eyes: conjunctivae/corneas clear. PERRL, EOM's intact. Fundi benign Throat: Lips, mucosa, and tongue normal. Teeth and gums normal Neck: supple, symmetrical, trachea midline, no adenopathy, thyroid: not enlarged, symmetric, no tenderness/mass/nodules, no carotid bruit and no JVD Lungs: clear to auscultation bilaterally Heart: regular rate and rhythm, S1, S2 normal, no murmur, click, rub or gallop Abdomen: soft, non-tender. Bowel sounds normal. No masses, no organomegaly mild distention discomfort on palpation right groin stable can identify fully reduce or not Extremities: extremities normal, atraumatic, no cyanosis or edema Pulses: 2+ and symmetric Skin: Skin color, texture, turgor normal. No rashes or lesions Neurologic: Grossly normal Last 24 Hour Vital Signs Date Time Temp Pulse Resp B/P (MAP) Pulse Ox O2 Delivery O2 Flow Rate FiO2 03/04/20 12:00 97.9 81 18 145/86 (105) 95 03/04/20 11:44 145/86 03/04/20 11:44 81 145/86 03/04/20 09:52 Room Air 03/04/20 08:00 99.1 82 18 133/80 (97) 96 03/04/20 04:00 98.0 74 18 138/80 (99) 96 03/04/20 00:00 98.2 78 19 128/71 (90) 95 03/03/20 22:01 81 135/87 03/03/20 21:00 Room Air 03/03/20 20:00 99.3 81 19 135/87 (103) 97 03/03/20 16:00 98.2 93 19 134/115 (121) 100 03/03/20 15:29 Room Air 03/03/20 14:57 98.8 85 20 143/85 97 Room Air 03/03/20 14:36 98.8 85 20 143/85 97 Room Air Intake and Output 03/03/20 03/04/20 19:00 07:00 Intake Total 1000 ml Balance 1000 ml Intake Oral 1000 ml # Voids 6 1 # Bowel Movements 2 Laboratory Tests Test 03/04/20 04:00 Troponin I 0.022 ng/mL (0.000-0.056) Pro-B-Type Natriuretic Peptide 297 pg/mL (0-125) H Height (Feet): 5 Height (Inches): 1.00 Weight (Pounds): 90 Medications Current Medications Medications (Trade) Dose Ordered Sig/Danuta Route PRN Reason Start Time Stop Time Status Last Admin Dose Admin Atorvastatin Calcium (Lipitor) 80 mg BEDTIME ORAL 03/03/20 21:00 06/01/20 20:59 Docusate Sodium (Colace) 100 mg TWICE A DAY ORAL 03/03/20 18:00 04/02/20 17:59 03/04/20 11:42 Hydralazine HCl (Apresoline) 10 mg Q4H PRN ORAL SBP>170 03/03/20 21:30 06/01/20 21:29 Hydrochlorothiazide (Hydrodiuril) 12.5 mg DAILY ORAL 03/04/20 09:00 04/03/20 08:59 Hydroxyurea (Hydrea) 500 mg DAILY ORAL 03/04/20 09:00 03/09/20 08:59 03/04/20 11:43 Iohexol (OMNIPAQUE-300 100ml) 100 ml NOW PRN INJ Radiology Procedure 03/03/20 12:15 03/05/20 12:11 Lisinopril (ZestriL) 10 mg DAILY ORAL 03/04/20 09:00 04/03/20 08:59 03/04/20 11:44 Magnesium Hydroxide (Mom) 30 ml BIDPRN PRN ORAL Constipation 03/03/20 16:15 04/02/20 16:14 Metoprolol Tartrate (Lopressor) 25 mg EVERY 12 HOURS ORAL 03/03/20 21:00 06/01/20 20:59 03/04/20 11:44 Morphine Sulfate (Morphine Sulfate) 1 mg Q6H PRN IVP For Pain 03/03/20 22:00 03/10/20 21:59 03/03/20 22:02 Assessment/Plan Problem List: (1) Inguinal hernia Assessment & Plan: This is a 75-year-old female with a right inguinal hernia that used to be reducible and currently unsure if actually fully reduced. Patient has had 3 emergency department visits in 1 week and 2 admissions for this. Attempts at elective repair and management outpatient have been performed chatter cardiac evaluation echo EKG and clearance as an outpatient but was unable to make it till surgery date without significant symptoms. At this time given her history recent events and condition and the fact that I am not fully sure the hernia is reduced at all times recommend urgent surgical intervention before potential complication. Risk-benefit alternatives were discussed with patient in detail. Case was discussed with patient bait painter primary care physician medical teams. Patient is clear for surgery and will schedule immediately. N.p.o. IV fluids Labs and imaging ordered Imaging reviewed Consent We will proceed with repair urgently thank you for let me participate in patient 's care Appendix: Normal appendix. Bladder: Mild prominence of the bladder wall is nonspecific. Please correlate with urinalysis if concerned for cystitis. Reproductive: Calcified uterine fibroid. ABDOMEN and PELVIS: Intraperitoneal space: Small amount of ascites. No free air. Bones/joints: Mild degenerative changes of the spine. Chronic mild superior endplate depressions of the L1 and L2 vertebral bodies. Soft tissues: Stable right inguinal hernia containing nonobstructed small bowel. Vasculature: Atherosclerotic changes of the vasculature. No aortic aneurysm or dissection. Lymph nodes: Unremarkable. No enlarged lymph nodes. IMPRESSION: 1. Prominence of the wall of the stomach may be secondary to under distention, but gastritis is not excluded. 2. Mildly prominent fluid and gas-filled small bowel loops are nonspecific but may represent enteritis or ileus in the appropriate clinical setting. Findings are decreased in prominence compared to prior exam. 3. Mild prominence of the bladder wall is nonspecific. Please correlate with urinalysis if concerned for cystitis. 4. Small amount of ascites. 5. Stable right inguinal hernia containing nonobstructed small bowel. ICD Codes: K40.90 - Unilateral inguinal hernia, without obstruction or gangrene , not specified as recurrent SNOMED: 096445902 Qualifiers: Qualified Codes: K40.91 - Unilateral inguinal hernia, without obstruction or gangrene, recurrent (2) Ileus ICD Codes: K56.7 - Ileus, unspecified SNOMED: 932201498 (3) Anemia ICD Codes: D64.9 - Anemia, unspecified SNOMED: 771340028 (4) Diverticulosis ICD Codes: K57.90 - Diverticulosis of intestine, part unspecified, without perforation or abscess without bleeding SNOMED: 896005531 (5) Hernia ICD Codes: K46.9 - Unspecified abdominal hernia without obstruction or gangrene SNOMED: 10684562 (6) HTN (hypertension) ICD Codes: I10 - Essential (primary) hypertension SNOMED: 40085592 (7) Intractable vomiting ICD Codes: R11.10 - Vomiting, unspecified SNOMED: 101596383 Bin Leon Mar 04, 2020 14:18
--- NOTE | 2020-03-04 15:32 | Cardiac Electrophysiology PN ---
Assessment/Plan Assessment/Plan 1. Accelerated hypertension. Continue Lopressor 25 mg b.i.d. Lisinopril 10 daily, HCTZ 25 daily and p.r.n. IV hydralazine. Echocardiogram showed Nl EF at office 2. Inguinal hernia. The patient has recurrence of vomiting. The CT scan and Further evaluation by Dr. Leon. Stable from cardiac standpoint to undergo surgery 3. History of enteritis and ileus. Subjective Subjective Feeling better. No CP or SOB. Scheduled for surgery tomorrow Objective Last 24 Hour Vital Signs Date Time Temp Pulse Resp B/P (MAP) Pulse Ox O2 Delivery O2 Flow Rate FiO2 03/04/20 12:00 97.9 81 18 145/86 (105) 95 03/04/20 11:44 145/86 03/04/20 11:44 81 145/86 03/04/20 09:52 Room Air 03/04/20 08:00 99.1 82 18 133/80 (97) 96 03/04/20 04:00 98.0 74 18 138/80 (99) 96 03/04/20 00:00 98.2 78 19 128/71 (90) 95 03/03/20 22:01 81 135/87 03/03/20 21:00 Room Air 03/03/20 20:00 99.3 81 19 135/87 (103) 97 03/03/20 16:00 98.2 93 19 134/115 (121) 100 Intake and Output 03/03/20 03/04/20 19:00 07:00 Intake Total 1000 ml Balance 1000 ml Intake Oral 1000 ml # Voids 6 1 # Bowel Movements 2 Laboratory Tests Test 03/04/20 04:00 Troponin I 0.022 ng/mL (0.000-0.056) Pro-B-Type Natriuretic Peptide 297 pg/mL (0-125) H Objective HEAD AND NECK: No JVD. LUNGS: Coarse rhonchi. CARDIOVASCULAR: Shows regular S1 and S2 with no gallop. ABDOMEN: Generally tender. EXTREMITIES: No pitting edema. Rogelio Wilkerson MD Mar 04, 2020 15:32
[2020-03-04 16:00] VITALS: BP 157/83
--- NOTE | 2020-03-04 16:45 | Progress Note ---
DATE: 03/04/2020 SUBJECTIVE: This is an elderly 75-year-old female, who came to the emergency room for having recurrent abdominal pain, nausea, vomiting, and recurrence of right inguinal hernia. The patient underwent two times in the emergency room at [facility] as well as [facility], and again she had her symptoms. The patient came this time for surgery. The patient is currently tolerating diet. Hernia is improved. She has no fever or chills. She had bowel movement last night. Blood pressure is controlled. OBJECTIVE: VITAL SIGNS: Current blood pressure is 145/86, pulse 81, , respirations 18. HEENT: NAD. CHEST: Bilaterally clear. CARDIOVASCULAR: Regular rhythm. ABDOMEN: Soft. Positive bowel sounds. A very small right inguinal hernia. GENITOURINARY: Deferred. LABORATORY DATA: White count 11, hemoglobin 14, hematocrit 44, platelets are 105,000. Chemistry panel, BUN 16, creatinine 1.3. Troponin 0.22. BNP was 297. Coagulation was unremarkable. DIAGNOSTIC IMAGING: Abdomen CT and pelvis showing prominence of the wall of the stomach, may be secondary to underdistention and gastritis prominent fluid and gas-filled small bowel loops are nonspecific, but may represent enteritis, ileus, mild prominence of bladder wall, nonspecific small amount of ascites, stable right inguinal hernia containing nonobstructive small bowel. ASSESSMENT: 1. Possible incarcerated hernia. 2. Symptomatic recurrent nausea and vomiting. 3. Hypertension. 4. The patient is clinically doing better. PLAN: We will continue the diet, NPO tonight, surgery tomorrow. Discussed with Dr. Gregory and Dr. Wilkerson for cardiac clearance. The patient probably is okay for surgery. Florentin Pritchett M.D. DR: JULIANNA JOB#: [id number] CC:
[2020-03-04 20:00] VITALS: BP 152/88
[2020-03-04] MEDS ORDERED: LORazepam 1mg tab ORAL PRN (20:30)
[2020-03-04] MEDS: Atorvastatin 80mg tab ORAL SCH ×2 (21:00→21:39)
[2020-03-05] VITALS (14 sets, daily range): BP systolic 136–170; BP diastolic 76–97
[2020-03-05] MEDS: hydroCHLOROthiazide 12.5mg TAB ORAL SCH (09:00)
[2020-03-05] MEDS: Lisinopril 10mg tab ORAL SCH (09:00)
[2020-03-05] MEDS: Hydroxyurea 500mg cap ORAL SCH (09:00)
[2020-03-05] MEDS: Docusate 100mg cap ORAL SCH ×2 (09:00→18:02)
[2020-03-05] MEDS ORDERED: Bacitracin 50000 Units Vial ONE (09:51)
[2020-03-05] MEDS ORDERED: Bupivacaine w/Epi 0.5% 30ml Vial INJ ONE (09:51)
[2020-03-05] MEDS ORDERED: Midazolam 2mg/2ml Inj ONE (09:53)
[2020-03-05] MEDS ORDERED: fentaNYL 100 mcg/2 mL IV ONE (09:53)
[2020-03-05] MEDS ORDERED: NS Irrig 1000ml ONE (10:00)
[2020-03-05] MEDS ORDERED: Sterile Water Irrig 1000ml IRRIG ONE (10:00)
[2020-03-05] MEDS ORDERED: Rocuronium Bromide 100mg/10ml Inj IV ONE (10:00)
[2020-03-05] MEDS ORDERED: Lidocaine 1% MPF 10mg/ml 5ml ONE (10:49)
--- NOTE | 2020-03-05 11:08 | Anethesia Preoperative Eval ---
Anesthesia Pre-op PMH/ROS General Date of Evaluation: Mar 05, 2020 Time of Evaluation: 10:00 Anesthesiologist: peg ASA Score: ASA 2 Mallampati Score Class I : Soft palate, uvula, fauces, pillars visible Class II: Soft palate, uvula, fauces visible Class III: Soft palate, base of uvula visible Class IV: Only hard plate visible Mallampati Classification: Class II Surgeon: edvin Diagnosis: hernia Surgical Procedure: R inguinal hernia repair Anesthesia History: none Family History: no anesthesia problems Allergies: Coded Allergies: No Known Allergies (Unverified , 02/19/20) Medications: see eMAR Patient NPO?: Yes NPO Date: Mar 05, 2020 NPO Time: 00:01 Past Medical History Cardiovascular: Reports: HTN, other - HLP Pulmonary: Denies: asthma, COPD, FRAN[place], other Neurologic/Psychiatric: Denies: dementia, CVA, depression/anxiety, TIA, other Endocrine: Denies: DM, hypothyroidism, steroids, other HEENT: Denies: cataract (L), cataract (R), glaucoma, [place] (L), [place] (R), other Hematology/Immune: Denies: anemia, DVT, bleeding disorder, other Musculoskeletal/Integumentary: Denies: OA, RA, DJD, DDD, edema, other PSxH Narrative: colonoscopy Anesthesia Pre-op Phys. Exam Physician Exam Last Vital Signs Date Time Temp Pulse Resp B/P (MAP) Pulse Ox O2 Delivery O2 Flow Rate FiO2 03/05/20 08:00 98.1 79 18 152/88 (109) 96 03/04/20 21:00 Room Air Constitutional: NAD Neurologic: CN 2-12 intact Cardiovascular: RRR Respiratory: CTA Gastrointestinal: S/NT/ND Airway Exam Mallampati Classification 2 Mallampati Score: Class II MO: full ROM: full Dentures: upper, lower Anesthesia Pre-op A/P Studies Pre-op Studies: EKG - SR Risk Assessment & Plan Plan: general Status Change Before Surgery: No Pre-Antibiotics Drug: ancef Given Within 1 Hr of Incision: Yes Time Given: 10:15 Kendal Menendez CRNA Mar 05, 2020 11:08
[2020-03-05] MEDS ORDERED: fentaNYL 100 mcg/2 mL IV PRN (11:15)
[2020-03-05] MEDS ORDERED: Neostigmine 1mg/ml 10ml Inj ONE (11:31)
[2020-03-05] MEDS ORDERED: Glycopyrrolate 0.2mg/ml 1ml Vial ONE (11:31)
--- NOTE | 2020-03-05 11:48 | Immediate Post-Op Evaluation ---
Immediate Post-Op Evalulation Immediate Post-Op Evalulation Procedure: right inguinal hernia repair Date of Evaluation: Mar 05, 2020 Time of Evaluation: 11:47 IV Fluids: 600 Estimated Blood Loss: 5 Blood Pressure Systolic: 168 Blood Pressure Diastolic: 58 Pulse Rate: 78 Respiratory Rate: 14 O2 Sat by Pulse Oximetry: 99 Temperature (Fahrenheit): 97.5 Nausea: No Vomiting: No Complications none Patient Status: awake, reacts, patent Hydration Status: adequate Drug: ancef Given Within 1 Hr of Incision: Yes Time Given: 10:20 Kendal Menendez CRNA Mar 05, 2020 11:48
--- NOTE | 2020-03-05 14:19 | Brief Operative Note ---
Immediate Post Operative Note Operative Note Pre-op Diagnosis: Incarcerated inguinal hernia Procedure: 1. right femoral hernia repair with mesh 2. right inguinal direct hernia repair with mesh Post-op Diagnosis: 1. incarcerated right femoral hernia 2. right direct inguinal hernia Surgeon: edvin Anesthesiologist: emmanuel Anesthesia: general, local Specimen: yes Complications: none Condition: stable Fluids: n/c Estimated Blood Loss: minimal Drains: none Implant(s) used?: Yes Bin Leon Mar 05, 2020 14:19
[2020-03-05] MEDS ORDERED: HYDROmorphone 1mg/ml Carpuject IVP PRN (14:30)
[2020-03-05] MEDS ORDERED: Hydromorphone 0.5mg/0.5ml inj IVP PRN (14:30)
--- NOTE | 2020-03-05 17:10 | Cardiac Electrophysiology PN ---
Assessment/Plan Assessment/Plan 1. Accelerated hypertension. Continue Lopressor 25 mg b.i.d. Lisinopril 10 daily, HCTZ 25 daily and p.r.n. IV hydralazine. Echocardiogram showed Nl EF at office 2. Inguinal hernia. The patient has recurrence of vomiting. The CT scan and Further evaluation by Dr. Leon. S/P right femoral hernia repair with mesh. S/P right inguinal direct hernia repair with mesh Subjective Subjective Feeling better. No CP or SOB. Tolerated surgery by Dr Leon Objective Last 24 Hour Vital Signs Date Time Temp Pulse Resp B/P (MAP) Pulse Ox O2 Delivery O2 Flow Rate FiO2 03/05/20 16:08 98.1 65 18 159/76 (103) 99 03/05/20 13:13 98.4 70 18 154/84 (107) 99 03/05/20 12:45 97.9 70 23 136/80 100 Nasal Cannula 3 03/05/20 12:40 74 15 136/77 100 Nasal Cannula 3 03/05/20 12:25 70 14 155/85 100 Nasal Cannula 3 03/05/20 12:21 97.8 03/05/20 12:13 67 15 142/78 100 Nasal Cannula 3 03/05/20 12:03 67 15 150/77 100 Simple Mask 6 03/05/20 11:53 69 19 142/77 100 Simple Mask 6 03/05/20 11:48 80 22 170/97 100 Simple Mask 6 03/05/20 11:48 78 14 99 03/05/20 11:43 97.7 80 17 170/97 100 Simple Mask 6 03/05/20 09:00 79 152/88 03/05/20 09:00 Room Air 03/05/20 08:00 98.1 79 18 152/88 (109) 96 03/05/20 04:00 98.1 66 18 153/85 (107) 97 03/05/20 00:00 97.7 69 16 143/85 (104) 98 03/04/20 21:38 76 152/88 03/04/20 21:00 Room Air 03/04/20 20:00 98.9 76 16 152/88 (109) 98 Intake and Output 03/04/20 03/05/20 19:00 07:00 Intake Total 1285 ml 375 ml Balance 1285 ml 375 ml Intake Oral 1060 ml IV Total 225 ml 375 ml # Voids 3 3 Microbiology Date/Time Source Procedure Growth Status 03/05/20 08:31 Nasopharynx SARS-CoV-2 RdRp Gene Assay - Final Complete 03/03/20 14:30 Nasal Nares MRSA Culture - Final NO METHICILLIN RESISTANT STAPH AUREUS... Complete 03/03/20 14:30 Rectum VRE Culture - Final NO VANCOMYCIN RESISTANT ENTEROCOCCUS ... Complete Objective HEAD AND NECK: No JVD. LUNGS: Coarse rhonchi. CARDIOVASCULAR: Shows regular S1 and S2 with no gallop. ABDOMEN: Generally tender. EXTREMITIES: No pitting edema. Rogelio Wilkerson MD Mar 05, 2020 17:10
--- NOTE | 2020-03-05 17:15 | Operative Note - Dictated ---
DATE OF OPERATION: 03/05/2020 PREOPERATIVE DIAGNOSIS: Right groin hernia. POSTOPERATIVE DIAGNOSES: 1. Incarcerated right femoral hernia. 2. Right direct inguinal hernia. OPERATION PERFORMED: 1. Right femoral hernia repair with mesh. 2. Right direct inguinal hernia repair with mesh. ATTENDING SURGEON: Bin Leon MD. FURNACE UNLOADER: None. ANESTHESIOLOGIST: Kendal Menendez CRNA. ANESTHESIA: General ASSISTANT SURVEYOR plus local. ESTIMATED BLOOD LOSS: Minimal. IV FLUIDS: Please see anesthesia records. COMPLICATIONS: None. DRAINS: None. COUNTS: Sponge and needle counts correct x2. WOUND CLASSIFICATION: Class I. IMPLANTS: Bard small plug and Bard precut mesh. ANTIBIOTICS: A 2 g Ancef IV given one hour prior to cut time. DRAINS: None. INDICATIONS FOR PROCEDURE: This is a 75-year-old female with known right inguinal hernia presented with incarcerated hernia and resultant small bowel obstruction recently to [facility] and was reduced, treated conservatively, and discharged safely with plans for outpatient elective followup and scheduling of surgical repair. Unfortunately, in the meantime, the patient continued to have intermittent episodes and presented with similar symptoms identified to have hernia with bowel contents on CT and therefore given recent episodes and condition and it is the patient's best interest to have surgical intervention as soon as possible as she is not able to tolerate outpatient evaluation or care plan. Risks, benefits, alternatives were discussed with the patient in detail. The patient was scheduled for 03/05/2020. OPERATIVE NOTE: The patient was taken to the operating room and placed on the operating room table in supine position with bilateral arms out. All bony prominences were well padded. SCDs were placed. Preoperative time-out taken to identify the patient, procedure, operative and surgical staff. General anesthesia was induced and the patient was intubated. The abdomen was clipped, prepped, and draped in standard surgical fashion. Local anesthetic landmarks were identified and a skin incision was made in the right groin. Incision was carried down through the subcutaneous space, Tushar's fascia and down to the external oblique aponeurosis. The external obliques aponeurosis was divided in the direction of the of the muscle fibers. The nerve was identified and dissected and protected throughout the entire procedure. In the right inguinal region, it was clearly identified that the patient had a fairly moderate-sized direct inguinal hernia. No significant indirect inguinal hernia but continued to have a bulge in the right groin just inferior to this but abutting the inguinal ligament. On further evaluation, dissection outside the external ring towards the external canal and the femoral ring was clearly identified. The patient had incarcerated femoral hernia. The femoral hernia sac was dissected out and opened. A very thickened sac was identified and all contents returned to the anatomical abdominal location. High ligation of the sac was performed using a 2-0 Prolene suture. Sac was sent to pathology for review. A small Bard plug was brought into the operative field and attached to the area of high ligation and the femoral canal was plugged and circumferentially sutured in place using 2-0 Prolene sutures. Following this, attention was turned into the direct hernia repair defect and decision made to repair this using a Bard precut mesh which was fashioned and sized. The mesh was sutured in place beginning with the pubic tubercle and along the inguinal ligament and then interrupted to the conjoined tendon ensuring not to involve the nerve. Once a tension-free repair was performed, both hernias were repaired without complication. The wound bed was irrigated and suctioned. External oblique aponeurosis was reapproximated using 3-0 Vicryl suture followed by reapproximation of the Tushar's fascia using 3-0 Vicryl interrupted sutures. Skin incisions were reapproximated using 4-0 Monocryl running suture followed by placement of Dermabond and Steri-Strips. The patient tolerated procedure well was extubated and taken to postanesthetic care unit in stable condition. Local anesthetic was infiltrated throughout the procedure for the patient's comfort. Bin Leon M.D. DR: Rita JOB#: [id number] CC:
[2020-03-05] MEDS: ceFAZolin 2gm/50ml Premix 50 ML IV SCH (17:55)
[2020-03-05] MEDS: Atorvastatin 80mg tab ORAL SCH (20:44)
[2020-03-06] VITALS: BP 150/77
[2020-03-06] MEDS: ceFAZolin 2gm/50ml Premix 50 ML IV SCH (00:20)
--- NOTE | 2020-03-06 02:14 | Progress Note ---
DATE: 03/05/2020 SUBJECTIVE: This is an elderly female who was seen after surgery for inguinal hernia repair. currently she is in no pain. No nausea or vomiting. PHYSICAL EXAMINATION: VITAL SIGNS: Blood pressure is stable 140/90, pulse 70, respiratory rate 18 , temperature no fever. SKIN: Good skin turgor. HEENT: NAD. CHEST: Bilaterally clear. CARDIOVASCULAR: Regular rhythm. No gallop. No murmur. ABDOMEN: Soft. Positive bowel sounds. Nontender. EXTREMITIES: No edema. GENITOURINARY: Deferred. LABORATORY DATA: The patient has no labs today. ASSESSMENT: 1. Recurrent abdominal pain. 2. Possible incarcerated inguinal hernia on the right side. 3. Hypertension. 4. Anxiety. PLAN: The patient is currently NPO. Continue IV fluids. Continue morphine. Continue Zofran. Monitor labs. We will start clear liquid diet once the patient is awake. Florentin Pritchett M.D. DR: Odalis JOB#: [id number] CC:
[2020-03-06 04:00] VITALS: BP 128/72
[2020-03-06 08:00] VITALS: BP 127/75
--- NOTE | 2020-03-06 08:17 | 48 Hour Post Anesthesia Eval ---
Post Anesthesia Evaluation Procedure: right inguinal hernia repair Date of Evaluation: Mar 06, 2020 Time of Evaluation: 08:16 Blood Pressure Systolic: 128 0: 72 Pulse Rate: 89 Respiratory Rate: 20 Temperature (Fahrenheit): 97.2 O2 Sat by Pulse Oximetry: 94 Airway: patent Nausea: No Vomiting: No Pain Intensity: 3 Hydration Status: adequate Cardiopulmonary Status: Stable Mental Status/LOC: patient returned to baseline Follow-up Care/Observations: 0 Post-Anesthesia Complications: 0 Follow-up care needed: N/A Jurgen Oneil MD Mar 06, 2020 08:17
[2020-03-06] MEDS: Docusate 100mg cap ORAL SCH ×2 (08:28→17:59)
[2020-03-06] MEDS: Hydroxyurea 500mg cap ORAL SCH (08:29)
[2020-03-06] MEDS: hydroCHLOROthiazide 12.5mg TAB ORAL SCH ×2 (08:29→09:18)
[2020-03-06] MEDS: Lisinopril 10mg tab ORAL SCH (08:29)
--- NOTE | 2020-03-06 09:43 | Surgery Progress Note ---
Surgery Progress Note Subjective Procedure Performed 1. right femoral hernia repair with mesh 2. right inguinal direct hernia repair with mesh Additional Comments doing well post op tolerating diet comfortable pain improved as compared to yesterday ambulatory Objective Last 24 Hour Vital Signs Date Time Temp Pulse Resp B/P (MAP) Pulse Ox O2 Delivery O2 Flow Rate FiO2 03/06/20 08:59 97.2 03/06/20 08:29 128/72 03/06/20 08:29 89 128/72 03/06/20 08:17 89 20 94 03/06/20 08:00 98.1 79 20 127/75 (92) 96 03/06/20 04:00 97.2 89 20 128/72 (90) 94 03/06/20 00:00 98.2 79 20 150/77 (101) 97 03/05/20 21:12 Room Air 03/05/20 20:44 71 144/79 03/05/20 20:00 97.5 71 18 144/79 (100) 97 03/05/20 19:18 71 20 95 Nasal Cannula 3.0 32 03/05/20 16:08 98.1 65 18 159/76 (103) 99 03/05/20 13:13 98.4 70 18 154/84 (107) 99 03/05/20 12:45 97.9 70 23 136/80 100 Nasal Cannula 3 03/05/20 12:40 74 15 136/77 100 Nasal Cannula 3 03/05/20 12:25 70 14 155/85 100 Nasal Cannula 3 03/05/20 12:21 97.8 03/05/20 12:13 67 15 142/78 100 Nasal Cannula 3 03/05/20 12:03 67 15 150/77 100 Simple Mask 6 03/05/20 11:53 69 19 142/77 100 Simple Mask 6 03/05/20 11:48 80 22 170/97 100 Simple Mask 6 03/05/20 11:48 78 14 99 03/05/20 11:43 97.7 80 17 170/97 100 Simple Mask 6 I&O Intake and Output 03/05/20 03/06/20 19:00 07:00 Intake Total 1580 ml Output Total 10 ml 1000 ml Balance 1570 ml -1000 ml Intake Oral 480 ml IV Total 1100 ml Output Urine Total 1000 ml Estimated Blood Loss 10 ml # Voids 2 # Bowel Movements 1 Dressing: other Wound: clean, dry, other Drains: other Cardiovascular: RSR Respiratory: clear Abdomen: soft, non-tender, present bowel sounds Extremities: no tenderness, no cyanosis Assessment Post-op Diagnosis 1. incarcerated right femoral hernia 2. right direct inguinal hernia Plan Problems: (1) Inguinal hernia Assessment & Plan: This is a 75-year-old female with a right inguinal hernia that used to be reducible and currently unsure if actually fully reduced. Patient has had 3 emergency department visits in 1 week and 2 admissions for this. Attempts at elective repair and management outpatient have been performed [facility] cardiac evaluation echo EKG and clearance as an outpatient but was unable to make it till surgery date without significant symptoms. At this time given her history recent events and condition and the fact that I am not fully sure the hernia is reduced at all times recommend urgent surgical intervention before potential complication. Risk-benefit alternatives were discussed with patient in detail. Case was discussed with patient employment coordinator primary care physician medical teams. Patient is clear for surgery and will schedule immediately. N.p.o. IV fluids Labs and imaging ordered Imaging reviewed Consent We will proceed with repair urgently thank you for let me participate in patient 's care Appendix: Normal appendix. Bladder: Mild prominence of the bladder wall is nonspecific. Please correlate with urinalysis if concerned for cystitis. Reproductive: Calcified uterine fibroid. ABDOMEN and PELVIS: Intraperitoneal space: Small amount of ascites. No free air. Bones/joints: Mild degenerative changes of the spine. Chronic mild superior endplate depressions of the L1 and L2 vertebral bodies. Soft tissues: Stable right inguinal hernia containing nonobstructed small bowel. Vasculature: Atherosclerotic changes of the vasculature. No aortic aneurysm or dissection. Lymph nodes: Unremarkable. No enlarged lymph nodes. IMPRESSION: 1. Prominence of the wall of the stomach may be secondary to under distention, but gastritis is not excluded. 2. Mildly prominent fluid and gas-filled small bowel loops are nonspecific but may represent enteritis or ileus in the appropriate clinical setting. Findings are decreased in prominence compared to prior exam. 3. Mild prominence of the bladder wall is nonspecific. Please correlate with urinalysis if concerned for cystitis. 4. Small amount of ascites. 5. Stable right inguinal hernia containing nonobstructed small bowel. d/p repair recovering d/c plan tomorrow AM pain control (2) Ileus (3) Anemia (4) Diverticulosis (5) Hernia (6) HTN (hypertension) (7) Intractable vomiting Bin Leon Mar 06, 2020 09:43
[2020-03-06 12:00] VITALS: BP 137/71
--- NOTE | 2020-03-06 12:47 | Cardiac Electrophysiology PN ---
Assessment/Plan Assessment/Plan 1. Accelerated hypertension. Continue Lopressor 25 mg b.i.d. Lisinopril 10 daily, HCTZ 25 daily and p.r.n. IV hydralazine. Echo showed Nl EF at office 2. Inguinal hernia with recurrence of vomiting. The CT scan noted. S/P right femoral hernia repair with mesh. S/P right inguinal direct hernia repair with mesh by Dr. Leon. Subjective Subjective No CP or SOB. Tolerated surgery by Dr Leon Objective Last 24 Hour Vital Signs Date Time Temp Pulse Resp B/P (MAP) Pulse Ox O2 Delivery O2 Flow Rate FiO2 03/06/20 09:00 Room Air 03/06/20 08:59 97.2 03/06/20 08:29 128/72 03/06/20 08:29 89 128/72 03/06/20 08:17 89 20 94 03/06/20 08:00 98.1 79 20 127/75 (92) 96 03/06/20 04:00 97.2 89 20 128/72 (90) 94 03/06/20 00:00 98.2 79 20 150/77 (101) 97 03/05/20 21:12 Room Air 03/05/20 20:44 71 144/79 03/05/20 20:00 97.5 71 18 144/79 (100) 97 03/05/20 19:18 71 20 95 Nasal Cannula 3.0 32 03/05/20 16:08 98.1 65 18 159/76 (103) 99 03/05/20 13:13 98.4 70 18 154/84 (107) 99 Intake and Output 03/05/20 03/06/20 19:00 07:00 Intake Total 1580 ml Output Total 10 ml 1000 ml Balance 1570 ml -1000 ml Intake Oral 480 ml IV Total 1100 ml Output Urine Total 1000 ml Estimated Blood Loss 10 ml # Voids 2 # Bowel Movements 1 Microbiology Date/Time Source Procedure Growth Status 03/05/20 08:31 Nasopharynx SARS-CoV-2 RdRp Gene Assay - Final Complete 03/03/20 14:30 Nasal Nares MRSA Culture - Final NO METHICILLIN RESISTANT STAPH AUREUS... Complete 03/03/20 14:30 Rectum VRE Culture - Final NO VANCOMYCIN RESISTANT ENTEROCOCCUS ... Complete Objective HEAD AND NECK: No JVD. LUNGS: Coarse rhonchi. CARDIOVASCULAR: Shows regular S1 and S2 with no gallop. ABDOMEN: Generally tender. EXTREMITIES: No pitting edema. Rogelio Wilkerson MD Mar 06, 2020 12:47
[2020-03-06 16:00] VITALS: BP 127/77
[2020-03-06 20:00] VITALS: BP 147/76
[2020-03-06] MEDS: Atorvastatin 80mg tab ORAL SCH ×2 (20:02→20:04)
[2020-03-07] VITALS: BP 180/100
[2020-03-07 04:00] VITALS: BP 147/77
[2020-03-07 08:00] VITALS: BP 153/91
[2020-03-07] MEDS: Hydroxyurea 500mg cap ORAL SCH (09:00)
[2020-03-07 09:01] VITALS: BP 153/91
[2020-03-07] MEDS: Docusate 100mg cap ORAL SCH ×2 (09:06→17:14)
[2020-03-07] MEDS: Lisinopril 10mg tab ORAL SCH (09:08)
[2020-03-07] MEDS: hydroCHLOROthiazide 12.5mg TAB ORAL SCH (09:08)
[2020-03-07 12:00] VITALS: BP 143/81
--- NOTE | 2020-03-07 14:34 | Surgery Progress Note ---
Surgery Progress Note Subjective Procedure Performed 1. right femoral hernia repair with mesh 2. right inguinal direct hernia repair with mesh Symptoms: improved, tolerating diet, voiding well, passing flatus, pain decreased Objective Last 24 Hour Vital Signs Date Time Temp Pulse Resp B/P (MAP) Pulse Ox O2 Delivery O2 Flow Rate FiO2 03/07/20 12:00 97.9 78 17 143/81 (101) 98 03/07/20 09:43 98.1 03/07/20 09:08 153/91 03/07/20 09:08 79 153/91 03/07/20 09:01 98.1 79 18 153/91 (111) 98 03/07/20 09:00 Room Air 03/07/20 08:00 98.9 79 18 153/91 (111) 98 03/07/20 04:00 98.1 77 18 147/77 (100) 95 03/07/20 00:00 98.2 99 18 180/100 (126) 95 03/06/20 23:53 180/100 03/06/20 21:00 Room Air 03/06/20 20:02 70 147/76 03/06/20 20:00 97.9 76 18 147/76 (99) 99 03/06/20 16:00 97.7 71 18 127/77 (94) 97 I&O Intake and Output 03/06/20 03/07/20 19:00 07:00 Intake Total 800 ml Output Total 150 ml Balance 800 ml -150 ml Intake Oral 800 ml Emesis 150 ml # Voids 3 3 Dressing: dry Wound: clean Cardiovascular: RSR Respiratory: clear Abdomen: soft, flat, non-tender, present bowel sounds Extremities: no edema, no tenderness, no cyanosis Assessment Post-op Diagnosis 1. incarcerated right femoral hernia 2. right direct inguinal hernia Plan Problems: (1) Inguinal hernia Assessment & Plan: This is a 75-year-old female with a right inguinal hernia that used to be reducible and currently unsure if actually fully reduced. Patient has had 3 emergency department visits in 1 week and 2 admissions for this. Attempts at elective repair and management outpatient have been performed [facility] cardiac evaluation echo EKG and clearance as an outpatient but was unable to make it till surgery date without significant symptoms. At this time given her history recent events and condition and the fact that I am not fully sure the hernia is reduced at all times recommend urgent surgical intervention before potential complication. Risk-benefit alternatives were discussed with patient in detail. Case was discussed with patient senior technical support engineer primary care physician medical teams. Patient is clear for surgery and will schedule immediately. N.p.o. IV fluids Labs and imaging ordered Imaging reviewed Consent We will proceed with repair urgently thank you for let me participate in patient 's care Appendix: Normal appendix. Bladder: Mild prominence of the bladder wall is nonspecific. Please correlate with urinalysis if concerned for cystitis. Reproductive: Calcified uterine fibroid. ABDOMEN and PELVIS: Intraperitoneal space: Small amount of ascites. No free air. Bones/joints: Mild degenerative changes of the spine. Chronic mild superior endplate depressions of the L1 and L2 vertebral bodies. Soft tissues: Stable right inguinal hernia containing nonobstructed small bowel. Vasculature: Atherosclerotic changes of the vasculature. No aortic aneurysm or dissection. Lymph nodes: Unremarkable. No enlarged lymph nodes. IMPRESSION: 1. Prominence of the wall of the stomach may be secondary to under distention, but gastritis is not excluded. 2. Mildly prominent fluid and gas-filled small bowel loops are nonspecific but may represent enteritis or ileus in the appropriate clinical setting. Findings are decreased in prominence compared to prior exam. 3. Mild prominence of the bladder wall is nonspecific. Please correlate with urinalysis if concerned for cystitis. 4. Small amount of ascites. 5. Stable right inguinal hernia containing nonobstructed small bowel. d/p repair recovering d/c plan tomorrow AM pain control d/c home f/u outpatient rx written instructions given (2) Ileus (3) Anemia (4) Diverticulosis (5) Hernia (6) HTN (hypertension) (7) Intractable vomiting Bin Leon Mar 07, 2020 14:34
--- NOTE | 2020-03-07 15:06 | Cardiac Electrophysiology PN ---
Assessment/Plan Assessment/Plan 1. Accelerated hypertension. Continue Lopressor 25 mg b.i.d. Lisinopril 10 daily, HCTZ 25 daily and p.r.n. IV hydralazine. Echo showed Nl EF at office 2. Inguinal hernia with recurrence of vomiting. The CT scan noted. S/P right inguinal direct hernia repair with mesh by Dr. Leon. DW RN and Dr Leon Subjective Subjective No CP or SOB. Tolerated surgery by Dr Leon. DC planning today Objective Last 24 Hour Vital Signs Date Time Temp Pulse Resp B/P (MAP) Pulse Ox O2 Delivery O2 Flow Rate FiO2 03/07/20 12:00 97.9 78 17 143/81 (101) 98 03/07/20 09:43 98.1 03/07/20 09:08 153/91 03/07/20 09:08 79 153/91 03/07/20 09:01 98.1 79 18 153/91 (111) 98 03/07/20 09:00 Room Air 03/07/20 08:00 98.9 79 18 153/91 (111) 98 03/07/20 04:00 98.1 77 18 147/77 (100) 95 03/07/20 00:00 98.2 99 18 180/100 (126) 95 03/06/20 23:53 180/100 03/06/20 21:00 Room Air 03/06/20 20:02 70 147/76 03/06/20 20:00 97.9 76 18 147/76 (99) 99 03/06/20 16:00 97.7 71 18 127/77 (94) 97 Intake and Output 03/06/20 03/07/20 19:00 07:00 Intake Total 800 ml Output Total 150 ml Balance 800 ml -150 ml Intake Oral 800 ml Emesis 150 ml # Voids 3 3 Microbiology Date/Time Source Procedure Growth Status 03/05/20 08:31 Nasopharynx SARS-CoV-2 RdRp Gene Assay - Final Complete Objective HEAD AND NECK: No JVD. LUNGS: Coarse rhonchi. CARDIOVASCULAR: Shows regular S1 and S2 with no gallop. ABDOMEN: Generally tender. Incision intact EXTREMITIES: No pitting edema. Rogelio Wilkerson MD Mar 07, 2020 15:06
[2020-03-07 16:00] VITALS: BP 131/86
--- NOTE | 2020-03-11 13:02 | Discharge Summary ---
Discharge Summary Discharge Summary _ DATE OF ADMISSION: 03/03/2020 DATE OF DISCHARGE: 03/07/2020 DISCHARGED BY: Dr. Pritchett REASON FOR ADMISSION: 75 years old female with past medical history of CVA, [place] in 2019., presented to emergency department with complaint of abdominal pain with associated nausea and non bloody nonbilious vomiting for the last 3 days. Pain reported as dull, nonradiating, 10 out of 10. She denied chest pain or shortness of breath. Patient reported that she was prior in emergency room for vomiting due to ileus and inguinal hernia. Patient was discharged at that time and scheduled for outpatient surgery. Since that she went to [facility] , where she had her hernia reduced. Currently she was waiting for outpatient surgery to fix her hernia. Upon evaluation patient was afebrile, slightly tachycardic with HR 113, but blood pressure was elevated 175/128. Laboratory work-up revealed no leukocytosis, stable hemoglobin, hematocrit , platelet count 709. Stable electrolytes. BUN 16, creatinine 1.3. Glucose 138. Total bili 1.2 ,direct bili 0.2 , AST and ALT stable , lipase 79. CT of the abdomen and pelvis demonstrated enteritis versus ileus. Right inguinal hernia containing non-obstructed small bowel. In ED surgeon was consulted along with the computer systems design analyst. It was deemed that patient will benefit from medical clearance and surgical repair of hernia. Patient was not safe for discharge at this time. Patient subsequently admitted for further management. CONSULTANTS: computer systems design analyst Dr. Temple surgery Dr. Leon [facility]SE: Patient admitted and was made n.p.o. Patient started on IV fluids. Antiemetic and analgesic provided as needed. Plan for surgical intervention was discussed with patient , and patient consented for surgery Resawyer seen patient prior to surgery. Patient had accelerated hypertension. Antihypertensive regimen optimized and consisted of multiply medications including beta-zen, DAMASO inhibitor, hydrochlorothiazide and hydralazine as needed for blood pressure spikes. Echocardiogram was done prior in the office and revealed preserved ejection fraction. Patient was cleared for surgery from the cardiac standpoint. Patient subsequently undergone on 03/05 right femoral hernia repair with mesh and right direct inguinal hernia repair with mesh. Patient tolerated surgery well. Pain management was addressed as needed. Mobilization was encouraged. Incentive spirometer provided while in the bed. Patient slowly started on diet and was advanced as tolerated. Home medication continued. Patient was able to tolerate diet. Bowel regimen instituted. GI prophylaxis provided. Patient clinically stabilized and was ready for discharge FINAL DIAGNOSES: Incarcerated right femoral hernia Right direct inguinal hernia Status post right femoral hernia repair with mesh, right direct inguinal hernia repair with mesh Ileus Accelerated hypertension Intractable vomiting DISCHARGE MEDICATIONS: See Medication Reconciliation list. DISCHARGE INSTRUCTIONS: Patient was discharged home. Follow-up with surgeon as outpatient as advised by surgeon. I have been assigned to dictate discharge summary for this account. I was not involved in the patient's management. Re Morales NP Mar 11, 2020 13:02
== END 2020-03-07 20:00 | disposition home or self-care (01) | DRG 351 ==
LOC: EMR 13:03 → 4E 13:06 → EDBEDREQ 13:35
PROC: 0YU70JZ Supplement Right Femoral Region with Synthetic Substitute, Open Approach (ICD-10-PCS; principal; 2020-03-05 10:00)
PROC: 0YU50JZ Supplement Right Inguinal Region with Synthetic Substitute, Open Approach (ICD-10-PCS; principal; 2020-03-05 10:00)
DX: K41.30 Unilateral femoral hernia, with obstruction, without gangrene, not specified as recurrent (principal); K56.7 Ileus, unspecified; K40.90 Unilateral inguinal hernia, without obstruction or gangrene, not specified as recurrent; R11.10 Vomiting, unspecified; K57.90 Diverticulosis of intestine, part unspecified, without perforation or abscess without bleeding; I10 Essential (primary) hypertension; E78.5 Hyperlipidemia, unspecified; Z86.73 Personal history of transient ischemic attack (TIA), and cerebral infarction without residual deficits; F41.9 Anxiety disorder, unspecified; I25.2 Old myocardial infarction
CPT/HCPCS: 36415; 71045; 74177; 80053; 82248; 83690; 83880; 84484; 85025; 85610; 85730; 86850; 86900; 86901; 87081; 93005; 94003; 94150; 94664; 96361; 96374; 96375; 99285; J2250; J2405; J2710; J7030; U0002

== ENCOUNTER 2020-06-06 01:15 | Emergency (ER) | payer MEDICARE, MEDICAID ==
[~2020-06-06] VITALS: Ht 154.9 cm; Wt 45.4 kg
[2020-06-06 01:15] VITALS: BP 171/133
--- NOTE | 2020-06-06 01:15 | NUR ---
ED Nurse Note: Patient brought in by ambulance from home [id number] d/t abdominal aching pain 10/ that started last night after patient had burmese food. Patient reports the pain is "all over" her abdomen. Patient reports n/v/d. Patient aao x 4 and normally ambulatory but currently too weak to do so. Patient changed into gown and placed on security monitor. No acute distress noted during assessment.
[2020-06-06] MEDS ORDERED: Dicyclomine HCl 10mg/5ml oral soln ORAL ONE (01:30)
[2020-06-06] MEDS ORDERED: Mylanta II UD 30ml ORAL ONE (01:30)
[2020-06-06] MEDS ORDERED: Omnipaque-300 100ml vial INJ PRN (01:30)
[2020-06-06] MEDS ORDERED: Lidocaine 2% Visc 15ml soln ORAL ONE (01:30)
[2020-06-06] MEDS ORDERED: Morphine Sulfate 4mg/ml Inj (IV USE ONLY) IVP ONE (01:30)
--- NOTE | 2020-06-06 01:31 | Emergency Room Report ---
History of Present Illness General Chief Complaint: Abdominal Pain Source: Patient Present Illness HPI 75-year-old female with history of CVA, CAD, right inguinal hernia repair approximately 3 months ago, here with abdominal pain and vomiting. Patient says that 3 days ago "I ate some [place] food" and then several hours later began to feel diffuse abdominal pain. She has vomited many times since then nonbilious nonbloody. Says that she has not had a bowel movement since the pain started 3 days ago. Pain is sharp in nature, located diffusely, poorly localized. No fevers, chills, chest pain, palpitations, shortness of breath, back pain, diarrhea, dysuria. Allergies: Coded Allergies: No Known Allergies (Unverified , 02/19/20) COVID-19 Screening Contact w/high risk pt: No Recent Travel to affected area: No Experienced COVID-19 symptoms?: No COVID-19 Testing performed NETWORK OPERATIONS ANALYST: No Nursing Documentation-PMH Hx Cardiac Problems: Yes - CVA Hx Hypertension: Yes Hx COPD: Yes Hx Cancer: No Hx Gastrointestinal Problems: Yes - hernia, nausea and vomiting Hx Neurological Problems: Yes Hx Cerebrovascular Accident: Yes Review of Systems All Other Systems: negative except mentioned in HPI Physical Exam Vital Signs Date Time Temp Pulse Resp B/P (MAP) Pulse Ox O2 Delivery O2 Flow Rate FiO2 06/06/20 01:12 97.7 113 20 150/100 (117) 100 Room Air Sp02 EP Interpretation: reviewed, normal General Appearance: alert, non-toxic, moderate distress, other - Writhing in pain in the bed Head: normocephalic, atraumatic Eyes: bilateral eye normal inspection, bilateral eye PERRL ENT: hearing grossly normal, normal pharynx, no angioedema, normal voice Neck: full range of motion, supple/symm/no masses Respiratory: chest non-tender, lungs clear, normal breath sounds, speaking full sentences Cardiovascular #1: regular rate, rhythm, no edema Cardiovascular #2: 2+ carotid (R), 2+ carotid (L), 2+ radial (R), 2+ radial (L), 2+ dorsalis pedis (R), 2+ dorsalis pedis (L) Gastrointestinal: normal bowel sounds, soft, non-distended, no rebound, other - Diffuse moderate abdominal tenderness on palpation worse in the right lower quadrant. Negative Rovsing sign. Negative Garcia sign. Nondistended. No rebound tenderness Rectal: deferred Genitourinary: normal inspection, no CVA tenderness Musculoskeletal: back normal, normal range of motion, calf tenderness, gait/station normal, non-tender Neurologic: alert, motor strength/tone normal, oriented x3, sensory intact, responsive, speech normal Psychiatric: judgement/insight normal, memory normal, mood/affect normal, no suicidal/homicidal ideation Reflexes: 3+ bicep (R), 3+ bicep (L), 3+ tricep (R), 3+ tricep (L), 3+ knee (R), 3+ knee (L) Lymphatic: no adenopathy Medical Decision Making Diagnostic Impression: Primary Impression: Abdominal pain Additional Impressions: Vomiting Long QT interval Gastritis ER Course Procedure: Left-sided external jugular IV placed. 18-gauge IV. No complications EKG: NSR, no ischemia. No ectopy. QTc 499 Rhythm strip: patient monitored for arrhythmias - no malignant dysrhythmias, runs of PVCs, nor pauses noted CT abdomen pelvis IMPRESSION: Moderate diverticulosis, without acute diverticulitis. No small bowel obstruction. Mildly prominent gastric wall, correlate for mild gastritis. No CT evidence of enteritis. No cholelithiasis. No hydronephrosis. Improved appearance of the previously noted right femoral hernia. Laboratory Tests Test 06/06/20 01:30 06/06/20 03:11 White Blood Count 7.9 K/UL (4.8-10.8) Red Blood Count 4.37 M/UL (4.20-5.40) Hemoglobin 13.6 G/DL (12.0-16.0) Hematocrit 41.1 % (37.0-47.0) Mean Corpuscular Volume 94 FL (80-99) Mean Corpuscular Hemoglobin 31.0 PG (27.0-31.0) Mean Corpuscular Hemoglobin Concent 33.0 G/DL (32.0-36.0) Red Cell Distribution Width 14.6 % (11.6-14.8) Platelet Count 774 K/UL (150-450) H Mean Platelet Volume 6.2 FL (6.5-10.1) L Neutrophils (%) (Auto) 70.7 % (45.0-75.0) Lymphocytes (%) (Auto) 17.4 % (20.0-45.0) L Monocytes (%) (Auto) 8.3 % (1.0-10.0) Eosinophils (%) (Auto) 1.2 % (0.0-3.0) Basophils (%) (Auto) 2.4 % (0.0-2.0) H Sodium Level 136 MMOL/L (136-145) Potassium Level 4.6 MMOL/L (3.5-5.1) Chloride Level 98 MMOL/L (98-107) Carbon Dioxide Level 22 MMOL/L (21-32) Anion Gap 16 mmol/L (5-15) H Blood Urea Nitrogen 14 mg/dL (7-18) Creatinine 1.0 MG/DL (0.55-1.30) Estimated Glomerular Filtration Rate > 60 mL/min (>60) Glucose Level 185 MG/DL (74-106) H Calcium Level 9.8 MG/DL (8.5-10.1) Magnesium Level 2.1 MG/DL (1.8-2.4) Total Bilirubin 1.2 MG/DL (0.2-1.0) H Direct Bilirubin 0.1 MG/DL (0.0-0.3) Aspartate Amino Transferase (AST) 27 U/L (15-37) Alanine Aminotransferase (ALT) 15 U/L (12-78) Alkaline Phosphatase 59 U/L (46-116) Troponin I 0.026 ng/mL (0.000-0.056) Total Protein 8.5 G/DL (6.4-8.2) H Albumin 4.5 G/DL (3.4-5.0) Globulin 4.0 g/dL Albumin/Globulin Ratio 1.1 (1.0-2.7) Lipase 89 U/L (73-393) Urine Color Pale yellow Urine Appearance Clear Urine pH 8 (4.5-8.0) Urine Specific [place] 1.010 (1.005-1.035) Urine Protein 1+ (NEGATIVE) H Urine Glucose (UA) 1+ (NEGATIVE) H Urine Ketones 2+ (NEGATIVE) H Urine Blood Negative (NEGATIVE) Urine Nitrite Negative (NEGATIVE) Urine Bilirubin Negative (NEGATIVE) Urine Urobilinogen Normal MG/DL (0.0-1.0) Urine Leukocyte Esterase 1+ (NEGATIVE) H Urine RBC 0-2 /HPF (0 - 2) Urine WBC 2-4 /HPF (0 - 2) Urine Squamous Epithelial Cells Few /LPF (NONE/OCC) Urine Bacteria None /HPF (NONE) 75-year-old female with history of right femoral hernia repair approximately 3 months ago here with abdominal pain and vomiting. Patient was hemodynamically stable but uncomfortable in appearance on arrival to the emergency department. She vomited once in the emergency department nonbilious nonbloody. She was passing gas. She had a nondistended abdomen without clinical evidence of bowel obstruction. CT abdomen pelvis showed only evidence of gastritis. Patient had unremarkable labs performed in the emergency department. EKG was normal aside from a QTC of 499. Patient does not take any QT prolonging drugs at home. She was given Pepcid, GI cocktail, morphine with complete resolution of her symptoms. Was given a prescription for Pepcid, Maalox, [place]. Was wishing to be discharged. She will follow-up with her primary care provider. Discharged in stable condition. Told to come back to the emergency department if she has any worsening abdominal pain, vomiting, inability to pass gas or stool. She expressed understanding and was discharged. Last Vital Signs Date Time Temp Pulse Resp B/P (MAP) Pulse Ox O2 Delivery O2 Flow Rate FiO2 06/06/20 01:12 97.7 113 20 150/100 (117) 100 Room Air Scripts Hydrocodone Bit/Acetaminophen 5-325* (NORCO 5-325 TABLET*) 1 Each Tablet 1 TAB ORAL Q4H PRN for For Pain, #10 TAB Prov: Abdias Mart M.D. 06/06/20 Mag Hydrox/Al Hydrox/Simeth (MAALOX MAXIMUM STRENGTH SUSP) 355 Ml Oral.susp 355 ML PO BID for 7 Days, ML Prov: Abdias Mart M.D. 06/06/20 Famotidine* (Pepcid 20mg tablet*) 20 Mg Tablet 20 MG ORAL DAILY for Gerd, #30 TAB 0 Refills Prov: Abdias Mart M.D. 06/06/20 Abdias Mart M.D. Jun 06, 2020 01:31
[2020-06-06 02:20] LABS: BASOPHILS % (AUTO) 2.4 % (0.0-2.0); EOSINOPHILS % (AUTO) 1.2 % (0.0-3.0); HEMATOCRIT 41.1 % (37.0-47.0); HEMOGLOBIN 13.6 G/DL (12.0-16.0); LYMPHOCYTES % (AUTO) 17.4 % (20.0-45.0); MEAN CORPUSCULAR VOLUME 94 FL (80-99); MONOCYTES % (AUTO) 8.3 % (1.0-10.0); NEUTROPHILS % (AUTO) 70.7 % (45.0-75.0); PLATELET COUNT 774 K/UL (150-450); RED BLOOD COUNT 4.37 M/UL (4.20-5.40); RED CELL DISTRIBUTION WIDTH 14.6 % (11.6-14.8); WHITE BLOOD COUNT 7.9 K/UL (4.8-10.8)
[2020-06-06 02:36] LABS: ANION GAP 16 mmol/L (5-15); BLOOD UREA NITROGEN 14 mg/dL (7-18); CALCIUM 9.8 MG/DL (8.5-10.1); CARBON DIOXIDE 22 MMOL/L (21-32); CHLORIDE 98 MMOL/L (98-107); POTASSIUM 4.6 MMOL/L (3.5-5.1); SODIUM 136 MMOL/L (136-145)
--- NOTE | 2020-06-06 02:44 | NUR ---
ED Nurse Note: Patient taken to CT in stable condition
[2020-06-06 02:45] LABS: ALANINE AMINOTRANSFERASE 15 U/L (12-78); ALBUMIN 4.5 G/DL (3.4-5.0); ALBUMIN/GLOBULIN RATIO 1.1 (1.0-2.7); ALKALINE PHOSPHATASE 59 U/L (46-116); ASPARTATE AMINO TRANSFERASE 27 U/L (15-37); BILIRUBIN,TOTAL 1.2 MG/DL (0.2-1.0)
[2020-06-06 02:47] LABS: BILIRUBIN,DIRECT 0.1 MG/DL (0.0-0.3)
--- NOTE | 2020-06-06 03:13 | NUR ---
ED Nurse Note: Patient ambulated to restroom with steady gait, urine collected and sent to lab.
[2020-06-06 03:17] LABS: APPEARANCE,URINE CLEAR; BILIRUBIN, URINE NEGATIVE (NEGATIVE); COLOR,URINE PALE YELLOW; GLUCOSE, URINE (UA) 1+ (NEGATIVE); KETONES,URINE 2+ (NEGATIVE); LEUKOCYTE ESTERASE ,URINE 1+ (NEGATIVE); NITRITE,URINE NEGATIVE (NEGATIVE); PH,URINE 8 (4.5-8.0); PROTEIN,URINE 1+ (NEGATIVE); UROBILINOGEN,URINE NORMAL MG/DL (0.0-1.0)
--- NOTE | 2020-06-06 03:41 | Diagnostic Imaging Report ---
EXAM: CT Abdomen and Pelvis With Intravenous Contrast CLINICAL HISTORY: PAIN TECHNIQUE: Axial computed tomography images of the abdomen and pelvis with intravenous contrast. CTDI is 3.20 mGy and DLP is 150.80 mGy-cm. One or more of the following dose reduction techniques were used: automated exposure control, adjustment of the mA and/or kV according to patient size, use of iterative reconstruction technique. COMPARISON: CT abdomen pelvis March 03, 2020 FINDINGS: Lung bases: Moderate emphysematous changes at the lung bases. ABDOMEN: Liver: Unremarkable. No mass. Gallbladder and bile ducts: Contracted gallbladder. No calcified stones. No ductal dilation. Pancreas: Unremarkable. No mass. No ductal dilation. Spleen: Unremarkable. No splenomegaly. Adrenals: Unremarkable. No mass. Kidneys and ureters: The kidneys symmetrically enhance. No hydronephrosis. Subcentimeter bilateral renal cyst. Stomach and bowel: Moderate diverticulosis, without acute diverticulitis. No small bowel obstruction. PELVIS: Appendix: Noninflamed appendix, which contains air and is mildly prominent in size. Bladder: Unremarkable. No mass. Reproductive: Calcified fibroid in the uterus, measuring 1.2 cm. ABDOMEN and PELVIS: Intraperitoneal space: Unremarkable. No free air. No significant fluid collection. Bones/joints: Degenerative changes of the spine. No acute fracture. No dislocation. Soft tissues: Improved appearance of the previously noted right femoral hernia. Vasculature: Atherosclerotic changes of the aorta. No abdominal aortic aneurysm. Lymph nodes: Unremarkable. No enlarged lymph nodes. IMPRESSION: Moderate diverticulosis, without acute diverticulitis. No small bowel obstruction. Mildly prominent gastric wall, correlate for mild gastritis. No CT evidence of enteritis. No cholelithiasis. No hydronephrosis. Improved appearance of the previously noted right femoral hernia.
[2020-06-06] MEDS ORDERED: NORCO 5-325 TA1 EAC1 ORAL (03:55)
[2020-06-06] MEDS ORDERED: MAALOX MAXIMUM355 M1 PO (03:55)
[2020-06-06] MEDS ORDERED: FAMOTIDINE20 MG ORAL (03:55)
[2020-06-06 04:40] VITALS: BP 135/79
--- NOTE | 2020-06-06 04:40 | NUR ---
ER DISCHARGE NOTE: Patient is cleared to be discharged per ERMD, pt is aox4, on room air, with stable vital signs. pt was given dc and prescription instructions, pt was able to verbalize understanding, pt id band and iv site removed intact without complications. pt is able to ambulate with steady gait. pt took all belongings. pt provided with taxi voucher for transportation home. pt stable upon discharge.
--- NOTE | 2020-06-10 06:18 | Cardiology Report ---
APPROVED REPORT EKG Measurement Heart [id number] <Conclusion> Normal sinus rhythm Possible Left atrial enlargement Left ventricular hypertrophy Nonspecific ST abnormality Prolonged QT Abnormal ECG
== END 2020-06-06 04:40 | disposition home or self-care (01) ==
LOC: EDBD 01:15 → EMR 01:40
DX: R10.9 Unspecified abdominal pain (principal); R11.10 Vomiting, unspecified; I45.81 Long QT syndrome; K29.70 Gastritis, unspecified, without bleeding; J44.9 Chronic obstructive pulmonary disease, unspecified; Z86.73 Personal history of transient ischemic attack (TIA), and cerebral infarction without residual deficits; I11.0 Hypertensive heart disease with heart failure; I25.10 Atherosclerotic heart disease of native coronary artery without angina pectoris; K57.90 Diverticulosis of intestine, part unspecified, without perforation or abscess without bleeding; K41.90 Unilateral femoral hernia, without obstruction or gangrene, not specified as recurrent; D25.9 Leiomyoma of uterus, unspecified; N28.1 Cyst of kidney, acquired; I70.0 Atherosclerosis of aorta
CPT/HCPCS: 36415; 74177; 80053; 81003; 82248; 83690; 83735; 84484; 85025; 93005; 96361; 96374; 96375; 99284; J2270; J2405; J7030; Q9965; S0028